=== PATIENT | female | born 1930 | race Caucasian/White ===

== ENCOUNTER → 2017-05-02 | Outpatient (CLI) | payer OTHER | LOC: CIMAGING 11:02 | PROVIDERS: ATTEND Neurological Surgery | DX: Z09 Encounter for follow-up examination after completed treatment for conditions other than malignant neoplasm (principal); Z98.1 Arthrodesis status; M43.12 Spondylolisthesis, cervical region | CPT/HCPCS: 72040-PO ==

== ENCOUNTER → 2017-06-03 | Outpatient (CLI) | payer OTHER | LOC: FIMAGING 09:37 | PROVIDERS: ATTEND Neurological Surgery | DX: M48.06 Spinal stenosis, lumbar region (principal) ==

== ENCOUNTER 2018-04-13 06:31 | Day surgery (SDC) | payer OTHER ==
[2018-04-13] MEDS ORDERED: FAMOTIDINE 20 MG TAB PO ONE (06:34)
[2018-04-13] MEDS ORDERED: ASPIRIN EC 325 MG TAB PO ONE (06:34)
[2018-04-13] MEDS ORDERED: diphenhydrAMINE 25 MG CAP PO ONE (06:34)
[2018-04-13] MEDS ORDERED: DIAZEPAM 5 MG TAB PO ONE (06:34)
[2018-04-13] MEDS ORDERED: NS 1,000 ML IV ONE (06:34)
--- NOTE | 2018-04-13 07:06 | CPEKG ---
Heart Rate: 53 RR Interval: 1132 P-R Interval: 192 QRSD Interval: 102 QT Interval: 436 QTC Interval: 410 P [place]: 37 QRS [place]: -39 T Wave [place]: -1 EKG Severity - BORDERLINE ECG - EKG Impression: SINUS RHYTHM EKG Impression: LEFT AXIS DEVIATION EKG Impression: BORDERLINE T ABNORMALITIES, INFERIOR LEADS EKG Impression: NO SIGNIFICANT CHANGE COMPARED WITH 07/23/2015 Electronically Signed By: Gilda Delgadillo 13-Apr-2018 08:36:06
[2018-04-13 07:10] LABS: PLATELET COUNT 205 10^3/uL (150-400)
[2018-04-13 07:17] LABS: INR 1.1 (0.83-1.16); PROTIME(PATIENT) 14.4 SEC (12.0-15.0)
--- NOTE | 2018-04-13 07:24 | PDHPUP ---
History & Physical Update H&P update statement: This history and physical update is based on an assessment of the patient which was completed after admission or registration (within 24 hours), but prior to the surgery/procedure. H&P update: H&P reviewed & patient examined, no change in patient's condition since H&P completed
--- NOTE | 2018-04-13 07:24 | PDPROPOC ---
Sedation Plan of Care Sedation Plan of Care: mental status noted, patient educated of risks, benefits , alternatives, patient can tolerate sedation ASA Classification: ASA 2 Planned drugs: fentanyl, midazolam Mallampati Score: Class 2 Mallampati Reference Image: Patient passed 3-3-2 rule?: Yes
[2018-04-13] MEDS ORDERED: LIDOCAINE 1% 300 MG/30 ML SDV ONE (07:41)
[2018-04-13] MEDS ORDERED: IOPAMIDOL (ISOVUE-370) 150 ML BTL IV ONE (07:42)
[2018-04-13] MEDS ORDERED: fentaNYL 100 MCG/2 ML INJ ONE (07:42)
[2018-04-13] MEDS ORDERED: HEPARIN 10,000 UNIT/10 ML MDV (1,000 UNIT/ML) ONE (07:42)
[2018-04-13] MEDS ORDERED: MIDAZOLAM 2 MG/2 ML VIAL ONE (07:42)
[2018-04-13] MEDS ORDERED: VERAPAMIL 5 MG/2 ML VIAL ONE (07:42)
[2018-04-13] MEDS ORDERED: NITROGLYCERIN 0.4 MG BTL SL PRN (08:32)
--- NOTE | 2018-04-13 08:38 | PDDXCAT ---
Diagnostic Cath Note - . Date: 04/13/18 Job Development Specialist: Gaurav Indication: Class I/II angina, intolerance to med therapy or failure to respond - Procedure Access: left wrist Procedure: left heart catheterization, coronary angiography, other (measure LVEDP) - Materials Left Heart Cath size: 4F Left Heart Cath materials: JL3.5, JR4.0, pigtail - Findings-Left Heart Catheterization LM: unobstructed. LAD: Stents widely patent with mild ISR not greater than 30%. 50% proximal LAD calcific atheroma. LCX: Stents widely patent. Diffuse atheroma without focal stenosis. L to right collaterals. RCA: Proximal 100% occlusion LVEF: 5 mmHg Complications: none Closure method: TR Band Assessment: 1, Widely patent sites of prior stenting with minimal ISR. 2. Occluded RCA with L to R collaterals. 3,Normal filling pressures. Plan: Medical therapy. Intervention: 4,000 units heparin 1 mg verseed 25ug fentanyl 25 cc contrast 226 mgy fluro Post procedure hydration with normal saline. Patient Problems: Problems Problem Status Onset Cervical stenosis of spinal canal Acute Arthrodesis status Acute
[2018-04-13] MEDS ORDERED: NS 1,000 ML IV SCH (08:45)
== END 2018-04-13 13:00 | disposition home or self-care (01) ==
LOC: FCATH 06:31
PROVIDERS: ATTEND Internal Medicine Interventional Cardiology
PROC: B2111ZZ Fluoroscopy of Multiple Coronary Arteries using Low Osmolar Contrast (ICD-10-PCS; principal; 2018-04-13)
PROC: B2151ZZ Fluoroscopy of Left Heart using Low Osmolar Contrast (ICD-10-PCS; principal; 2018-04-13)
PROC: 4A023N7 Measurement of Cardiac Sampling and Pressure, Left Heart, Percutaneous Approach (ICD-10-PCS; principal; 2018-04-13)
DX: I25.10 Atherosclerotic heart disease of native coronary artery without angina pectoris (principal); I65.22 Occlusion and stenosis of left carotid artery; I12.9 Hypertensive chronic kidney disease with stage 1 through stage 4 chronic kidney disease, or unspecified chronic kidney disease; E78.5 Hyperlipidemia, unspecified; E11.22 Type 2 diabetes mellitus with diabetic chronic kidney disease; N18.9 Chronic kidney disease, unspecified; Z95.5 Presence of coronary angioplasty implant and graft
CPT/HCPCS: C1769; J1644; J2250; J3010; Q9967

== ENCOUNTER 2019-03-08 16:53 | Inpatient (IN) | payer OTHER ==
[2019-03-08] MEDS ORDERED: ONDANSETRON 4 MG/2 ML VIAL ONE (17:53)
[2019-03-08] MEDS ORDERED: ONDANSETRON 4 MG/2 ML VIAL IVP ONE (17:53)
[2019-03-08] MEDS ORDERED: NS 1,000 ML IV ONE (17:53)
[2019-03-08 17:59] LABS: PLATELET COUNT 189 10^3/uL (150-400)
--- NOTE | 2019-03-08 18:07 | EDPHY ---
H & P Time Seen by Provider: 03/08/19 17:35 HPI/ROS: CHIEF COMPLAINT: I haven't been able to keep anything down all day HISTORY OF PRESENT ILLNESS: Patient presents vomiting all day today. Of note she has a history of multiple back surgeries with chronic left leg weakness. Over the past 9 days she has had more difficulty being able to keep her balance when walking. She says that only in the morning she has difficulty walking to the bathroom needs to hold onto things and then she will get better over the course of the day. Account of waxed and waned in her son got her a walker and then today she started having a new symptom which is nausea and vomiting. She took 4:00 a.m. Tramadol for her chronic back pain and that is a new medication and then started vomiting shortly after. No diarrhea and just some mild abdominal cramping. Symptoms moderate to severe and worse with any oral intake and consistent over the rest the day and not getting better. She did not get out of bed so she did not have any issues with her balance today. She denies spinning or the sense of motion, denies visual symptoms, denies confusion or new weakness or numbness in extremities or neck pain. REVIEW OF SYSTEMS: Eye: no change in vision ENT: no sore throat Cardiac: no chest pain or syncope Pulmonary: no cough or SOB Abdomen: HPI Musculoskeletal: Chronic back pain on tramadol Skin: no rash Neuro: no headache Constitutional: no fever : no urinary symptoms A comprehensive 10 point review of systems is otherwise negative aside from elements mentioned in the history of present illness. PAST MEDICAL HISTORY: Includes multiple spine surgeries, coronary disease with stenting, diabetes type 2, renal insufficiency Social history: Surgeon is Marek Hall, here with son and family General Appearance: Alert and conversant, cooperative. Eyes: No scleral icterus. ENT, Mouth: Dry mucous membranes. Respiratory: Normal respiratory effort, breath sounds equal, lungs are clear to auscultation. Cardiovascular: Regular rate and rhythm. No murmur. Gastrointestinal: Abdomen is soft and non tender. No rebound or guarding and bowel sounds are normal. Neurological: Alert, face symmetric, follows commands. Her extensor hallucis is 4-5 in the left foot which is baseline for her. Toes are downgoing bilaterally. Good elevator constructor hydraulic strength. Skin: Warm and dry, no rashes. Musculoskeletal: No peripheral edema. Psychiatric: Not agitated. Emergency Department course/MDM: Patient presents with about 9 days of difficulty with her balance, unclear if this is related to medications or age or her known left leg weakness from previous back problems or recent ischemic stroke event. Plan for head CT. She is also clinically dehydrated with vomiting all day today but abdominal exam not suggestive of acute surgical abdominal process. IV normal saline 1 L, Zofran 4 mg IV, CBC chemistry. 1819: Negative acute head CT per Dr. Randhawa. 1914: No further nausea vomiting. Admission for evaluation of severely unstable gait. Not safe to be at home. Smoking Status: Never smoked Constitutional: Initial Vital Signs Temperature (C) 37.1 C 03/08/19 17:06 Heart Rate 56 L 03/08/19 17:06 Respiratory Rate 18 03/08/19 17:06 Blood Pressure 210/83 H 03/08/19 17:06 O2 Sat (%) 91 L 03/08/19 17:06 O2 Delivery Mode Nasal Cannula O2 (L/minute) 2 Allergies/Adverse Reactions: No Known Allergies Allergy (Verified 03/08/19 17:02) Home Medications: Medication Instructions Recorded Aspirin [Aspirin 81mg (*)] 81 mg PO DAILY 07/21/15 Atorvastatin Calcium [Lipitor 40 40 mg PO HS 07/21/15 mg (*)] C/E/Zn/Cu/OM3/DHA/EPA/LUT/ZEAX 1 each PO BID 07/21/15 [Preservision Areds 2 Softgel] Clopidogrel Bisulfate [Clopidogrel] 75 mg PO DAILY 07/21/15 Furosemide [Lasix 40 MG (*)] 40 mg PO DAILY 07/21/15 amLODIPine BESYLATE [Norvasc 10 mg 2.5 mg PO DAILY 07/21/15 (*)] hydrALAZINE [Apresoline 50 mg (*)] 50 mg PO BID 07/21/15 Acetaminophen [Tylenol ES 500 mg 500 mg PO DAILY 09/02/15 (*)] Insulin Glargine,Hum.rec.anlog 18 unit SQ HS 09/02/15 [Lantus Solostar] Cholecalciferol Vit D3 [Vitamin D3 1,000 units PO DAILY 04/10/18 (*)] Gabapentin [Neurontin 100 MG (*)] 200 mg PO BID 04/10/18 Metoprolol Succinate [Toprol Xl] 100 mg PO BID 04/10/18 traMADol 03/08/19 Medical Decision Making - Diagnostics EKG Interpretation: 12-lead EKG interpreted by me; official reading is in computer system. My interpretation is sinus rhythm with left atrial enlargement rate 65 no ischemic changes normal intervals. Imaging Results: Imaging Impressions Head CT 03/08/19 17:54 Impression: 1. Moderate atrophy. 2. No hemorrhage, mass effect, or definite acute peripheral infarct. 3. Mild to moderate nonspecific hypodensities in the white matter of bilateral cerebral hemispheres. Differential diagnosis includes microvascular ischemic disease, post-infectious/post-inflammatory sequela, atypical demyelinating disease, or migraine-related sequela. Small white matter lacunar infarcts may also have this appearance. 4. Arteriosclerotic calcifications associated with the distal ICA in the parasellar location and distal left vertebral artery at the skull base. 5. Remote lacunar infarct right caudate nucleus. If symptoms worsen, additional imaging may be necessary. Findings discussed with Jamie Toure M.D. at 18:19 hour, 03/08/2019. Imaging: Discussed imaging studies w/ orthopedically impaired teacher Radiologist Differential Diagnosis: My differential for ataxia considered including but not limited to ischemic cerebellar stroke, cerebral hemorrhage, vertebral dissection, medication side effect Consult/Admit Bed Type: [place] [id number] - Data Points Laboratory Results: Laboratory Results 03/08/19 17:47 03/08/19 17:47 03/08/19 03/08/19 17:47 17:47 WBC 7.93 10^3/uL 10^3/uL (3.80-9.50) RBC 4.79 10^6/uL 10^6/uL (4.18-5.33) Hgb 14.2 g/dL g/dL (12.6-16.3) Hct 43.4 % % (38.0-47.0) MCV 90.6 fL fL (81.5-99.8) MCH 29.6 pg pg (27.9-34.1) MCHC 32.7 g/dL g/dL (32.4-36.7) RDW 13.7 % % (11.5-15.2) Plt Count 189 10^3/uL 10^3/uL (150-400) MPV 10.2 fL fL (8.7-11.7) Neut % (Auto) Not Reported Lymph % (Auto) Not Reported [place] % (Auto) Not Reported Eos % (Auto) Not Reported Baso % (Auto) Not Reported Nucleat RBC Rel Count Not Reported Absolute Neuts (auto) Not Reported Absolute Lymphs (auto) Not Reported Absolute Monos (auto) Not Reported Absolute Eos (auto) Not Reported Absolute Basos (auto) Not Reported Absolute Nucleated RBC Not Reported Immature Gran % Not Reported Seg Neutrophils % 66.0 % % Band Neutrophils % 1.0 % % Lymphocytes % 29.0 % % Monocytes % 4.0 % % Eosinophils % 0.0 % % Basophils % 0.0 % % Metamyelocytes % 0.0 % % Myelocytes % 0.0 % % Promyelocytes % 0.0 % % Blast Cells % 0.0 % % Immature Gran # Not Reported Absolute Seg Neuts 5.23 10^3/uL 10^3/uL (1.70-6.50) Absolute Band Neuts 0.08 10^3/uL 10^3/uL (0.00-0.70) Absolute Lymphocytes 2.30 10^3/uL 10^3/uL (1.00-3.00) Absolute Monocytes 0.32 10^3/uL 10^3/uL (0.30-0.80) Absolute Eosinophils 0.00 10^3/uL L 10^3/uL (0.03-0.40) Absolute Basophils 0.00 10^3/uL L 10^3/uL (0.02-0.10) Absolute Metamyelocyte 0.00 10^3/mL 10^3/mL (0.00-0.00) Absolute Myelocytes 0.00 10^3/mL 10^3/mL (0.00-0.00) Absolute Promyelocytes 0.00 10^3/uL 10^3/uL (0.00-0.00) Absolute Plasma Cells 0.00 10^3/uL 10^3/uL (0.00-0.00) RBC/WBC/PLT Morphology NORMAL (NORMAL) Absolute Blast Cells 0.00 10^3/uL 10^3/uL (0.00-0.00) Plasma Cells % 0.0 % % Smudge Cells 1+ H Platelet Estimate ADEQUATE (ADEQ) Sodium 139 mEq/L mEq/L (135-145) Potassium 4.1 mEq/L mEq/L (3.5-5.2) Chloride 101 mEq/L mEq/L (97-110) Carbon Dioxide 28 mEq/l mEq/l (22-31) Anion Gap 10 mEq/L mEq/L (6-14) BUN 74 mg/dL H mg/dL (7-23) Creatinine 2.1 mg/dL H mg/dL (0.6-1.0) Estimated GFR 22 Glucose 218 mg/dL H mg/dL (70-100) Calcium 10.0 mg/dL mg/dL (8.5-10.4) Medications Given: Discontinued Medications Sodium Chloride (Ns) 1,000 mls @ 0 mls/hr IV EDNOW ONE; Wide Open PRN Reason: Protocol Stop: 03/08/19 17:54 Last Admin: 03/08/19 17:56 Dose: 1,000 mls Ondansetron HCl (Zofran) 4 mg IVP EDNOW ONE Stop: 03/08/19 17:54 Last Admin: 03/08/19 17:56 Dose: 4 mg Departure - Departure Disposition: [facility] Inpatient Acute Clinical Impression: Ataxia Nausea & vomiting Qualifiers: Vomiting type: unspecified Vomiting Intractability: non-intractable Qualified Code(s): R11.2 - Nausea with vomiting, unspecified Condition: Good Referrals: Natalio Espitia MD [Primary Care Provider] - As per Instructions
--- NOTE | 2019-03-08 18:20 | CPEKG ---
Test Reason : OPEN Blood Pressure : / mmHG Vent. Rate : 065 BPM Atrial Rate : 065 BPM P-R Int : 181 ms QRS Dur : 105 ms QT Int : 418 ms P-R-T Axes : 050 -37 -02 degrees QTc Int : 435 ms Sinus rhythm Probable left atrial enlargement Left axis deviation Confirmed by Brian Tanner ([id number]) on 03/08/2019 6:19:36 PM Referred By: BRIAN TANNER Confirmed By:Brian Tanner
[2019-03-08] MEDS ORDERED: hydrALAZINE 20 MG/ML VIAL IVP PRN ×2 (20:05→20:09)
[2019-03-08] MEDS ORDERED: D50W 25 GM/50 ML SYR IVP PRN (20:10)
--- NOTE | 2019-03-08 20:10 | PDGENHP ---
History and Physical - Chief Complaint Ataxia/weakness - History of Present Illness 88 y/o female w/ hx of multiple cervical sx's w/chronic LLE weakness and right foot drop, DM2, CKD, and CAD s/p stents presenting w/ 9 days worth of ataxia and weakness. Today she reportedly felt nauseous and vomiting. When she wakes up in the morning, she attempts to get out of bed quickly to make it to the bathroom in time, becomes lightheaded and dizzy, and feels like her balance is off to the point where she needs to hold on to ngo or objects to keep her balance. She reports her balance improves as the day progresses. Yesterday, she took new medication Tramadol for her chronic back pain and felt fine however she took a tablet today and became ill w/nausea and vomiting. Initial imaging has been unremarkable. Endorses urinary incontinence, not new. Denies CP, palpitations, SOB, constipation or diarrhea. History Information - Allergies/Home Medication List Allergies/Adverse Reactions: No Known Allergies Allergy (Verified 03/08/19 17:02) Home Medications: Aspirin [Aspirin 81mg (*)] 81 mg PO DAILY 07/21/15 [Last Taken 04/13/18] Atorvastatin Calcium [Lipitor 40 mg (*)] 40 mg PO HS 07/21/15 [Last Taken ] C/E/Zn/Cu/OM3/DHA/EPA/LUT/ZEAX [Preservision Areds 2 Softgel] 1 each PO BID [Last Taken 04/12/18] Clopidogrel Bisulfate [Clopidogrel] 75 mg PO DAILY 07/21/15 [Last Taken 04/13/18 ] Furosemide [Lasix 40 MG (*)] 40 mg PO DAILY 07/21/15 [Last Taken 04/12/18] hydrALAZINE [Apresoline 50 mg (*)] 50 mg PO BID 07/21/15 [Last Taken 04/13/18] Cholecalciferol Vit D3 [Vitamin D3 (*)] 2,000 units PO DAILY 04/10/18 [Last Taken 04/12/18] Gabapentin [Neurontin 100 MG (*)] 200 mg PO BID 04/10/18 [Last Taken 04/13/18] Metoprolol Succinate [Toprol Xl] 100 mg PO BID 04/10/18 [Last Taken 04/13/18] Acetaminophen [Tylenol 325mg (*)] 325 mg PO DAILY PRN 03/08/19 [Last Taken Unknown] Herbals/Supplements -Info Only 1 ea PO DAILY 03/08/19 [Last Taken Unknown] Insulin Glargine [Lantus] 18 unit SC HS 03/08/19 [Last Taken Unknown] Isosorbide Mononitrate [Isosorbide Mononitrate ER] 60 mg PO DAILY 03/08/19 [ Last Taken Unknown] amLODIPine BESYLATE [Norvasc 5 mg (*)] 5 mg PO DAILY 03/08/19 [Last Taken Unknown] traMADol [Ultram 50 mg (*)] 50 mg PO BID PRN 03/08/19 [Last Taken Unknown] I have personally reviewed and updated: family history, medical history, social history, surgical history - Past Medical History coronary artery disease, diabetes type 2, hypertension, hyperlipidemia Additional medical history: CKD - Surgical History Reports: coronary stent (1997 and 2012) - Family History Positive for: hypertension Additional family history: Congestive heart failure. Rheumatic heart disease - Social History Smoking Status: Never smoked Alcohol Use: None Drug Use: None Additional social history: Lives independently. Son and [id number] at bedside. Son got her a walker to use yesterday. Up until then, she had a cane which she admits to not ever using. Review of Systems Review of Systems: ROS: 10pt was reviewed & negative except for what was stated in HPI & below Physical Exam Physical Exam: Lab data and imaging were reviewed. White blood cell count: 7.93 Hemoglobin hematocrit: 14.2 and 43.4 Platelet count: 189 Sodium: 139 Potassium: 4.1 Chloride: 101 Carbon dioxide: 28 BUN/Cr: 7.4/2.[address] WO IV contrast: No hemorrhage, mass effect, or definite acute peripheral infarct; moderate atrophy; [id number] nonspecific hypodensities in the white matter of bilateral cerebral hemispheres; arterial sclerotic calcifications associated with the distal ICA in the parasellar location and distal left vertebral artery at the skull base; remote lacunar right caudate nucleus EKG: SR w/left axis deviation, suspected left atrial enlargement Temp Pulse Resp BP Pulse Ox 37.1 C 72 20 199/80 H 98 03/08/19 17:06 03/08/19 19:46 03/08/19 19:46 03/08/19 19:46 03/08/19 19:46 O2 (L/minute) 2 Constitutional: no apparent distress, appears nourished, not in pain Eyes: PERRL, anicteric sclera, EOMI Ears, Nose, Mouth, Throat: hearing normal, ears appear normal, no oral mucosal ulcers, dry mucous membranes Cardiovascular: regular rate and rhythym, no murmur, rub, or gallop, No edema Peripheral Pulses: 2+: dorsalis-pedis (R), dorsalis-pedis (L) Respiratory: no respiratory distress, no rales or rhonchi, clear to auscultation Gastrointestinal: normoactive bowel sounds, soft, non-tender abdomen, no palpable masses Genitourinary: no bladder fullness, no bladder tenderness Skin: warm, normal color, no rashes or abrasions, no fluctuance, no induration, No mottled Musculoskeletal: generalized weakness Neurologic: AAOx3, sensation intact bilaterally, CN II-XII Intact (Performed uardqh-fm-haed and tpoj-hr-eddv appropriately w/no issues; LLE chronically weak , unable to hold in air for 5 seconds w/o dropping) Psychiatric: interacting appropriately, not anxious, not encephalopathic, thought process linear Lymph, Heme, Immunologic: no cervical LAD, no supraclavicular LAD Lab Data & Imaging Review 03/08/19 17:47 03/08/19 17:47 WBC 7.93 10^3/uL (3.80-9.50) 03/08/19 17:47 RBC 4.79 10^6/uL (4.18-5.33) 03/08/19 17:47 Hgb 14.2 g/dL (12.6-16.3) 03/08/19 17:47 Hct 43.4 % (38.0-47.0) 03/08/19 17:47 MCV 90.6 fL (81.5-99.8) 03/08/19 17:47 MCH 29.6 pg (27.9-34.1) 03/08/19 17:47 MCHC 32.7 g/dL (32.4-36.7) 03/08/19 17:47 RDW 13.7 % (11.5-15.2) 03/08/19 17:47 Plt Count 189 10^3/uL (150-400) 03/08/19 17:47 MPV 10.2 fL (8.7-11.7) 03/08/19 17:47 Neut % (Auto) Not Reported 03/08/19 17:47 Lymph % (Auto) Not Reported 03/08/19 17:47 [place] % (Auto) Not Reported 03/08/19 17:47 Eos % (Auto) Not Reported 03/08/19 17:47 Baso % (Auto) Not Reported 03/08/19 17:47 Nucleat RBC Rel Count Not Reported 03/08/19 17:47 Absolute Neuts (auto) Not Reported 03/08/19 17:47 Absolute Lymphs (auto) Not Reported 03/08/19 17:47 Absolute Monos (auto) Not Reported 03/08/19 17:47 Absolute Eos (auto) Not Reported 03/08/19 17:47 Absolute Basos (auto) Not Reported 03/08/19 17:47 Absolute Nucleated RBC Not Reported 03/08/19 17:47 Immature Gran % Not Reported 03/08/19 17:47 Seg Neutrophils % 66.0 % 03/08/19 17:47 Band Neutrophils % 1.0 % 03/08/19 17:47 Lymphocytes % 29.0 % 03/08/19 17:47 Monocytes % 4.0 % 03/08/19 17:47 Eosinophils % 0.0 % 03/08/19 17:47 Basophils % 0.0 % 03/08/19 17:47 Metamyelocytes % 0.0 % 03/08/19 17:47 Myelocytes % 0.0 % 03/08/19 17:47 Promyelocytes % 0.0 % 03/08/19 17:47 Blast Cells % 0.0 % 03/08/19 17:47 Immature Gran # Not Reported 03/08/19 17:47 Absolute Seg Neuts 5.23 10^3/uL (1.70-6.50) 03/08/19 17:47 Absolute Band Neuts 0.08 10^3/uL (0.00-0.70) 03/08/19 17:47 Absolute Lymphocytes 2.30 10^3/uL (1.00-3.00) 03/08/19 17:47 Absolute Monocytes 0.32 10^3/uL (0.30-0.80) 03/08/19 17:47 Absolute Eosinophils 0.00 10^3/uL (0.03-0.40) L 03/08/19 17:47 Absolute Basophils 0.00 10^3/uL (0.02-0.10) L 03/08/19 17:47 Absolute Metamyelocyte 0.00 10^3/mL (0.00-0.00) 03/08/19 17:47 Absolute Myelocytes 0.00 10^3/mL (0.00-0.00) 03/08/19 17:47 Absolute Promyelocytes 0.00 10^3/uL (0.00-0.00) 03/08/19 17:47 Absolute Plasma Cells 0.00 10^3/uL (0.00-0.00) 03/08/19 17:47 RBC/WBC/PLT Morphology NORMAL (NORMAL) 03/08/19 17:47 Absolute Blast Cells 0.00 10^3/uL (0.00-0.00) 03/08/19 17:47 Plasma Cells % 0.0 % 03/08/19 17:47 Smudge Cells 1+ H 03/08/19 17:47 Platelet Estimate ADEQUATE (ADEQ) 03/08/19 17:47 Sodium 139 mEq/L (135-145) 03/08/19 17:47 Potassium 4.1 mEq/L (3.5-5.2) 03/08/19 17:47 Chloride 101 mEq/L (97-110) 03/08/19 17:47 Carbon Dioxide 28 mEq/l (22-31) 03/08/19 17:47 Anion Gap 10 mEq/L (6-14) 03/08/19 17:47 BUN 74 mg/dL (7-23) H 03/08/19 17:47 Creatinine 2.1 mg/dL (0.6-1.0) H 03/08/19 17:47 Estimated GFR 22 03/08/19 17:47 Glucose 218 mg/dL (70-100) H 03/08/19 17:47 Calcium 10.0 mg/dL (8.5-10.4) 03/08/19 17:47 Assessment & Plan Assessment: 88 y/o female presenting w/vague symptoms of dizziness, lightheadedness, gait disturbances for the last 9 days; worse in the morning but then progressively improves as the day goes on. Today she had bouts of nausea and vomiting. Her vital signs presenting to the emergency room are: Blood pressure 210/83, heart rate 56, respirations 18, 91% on room air, temperature 37.1 degrees. Her current set of vitals are: Blood pressure 163/45, heart rate 69, respirations 18, 94% on 2 L nasal cannula. #Ataxia w/unknown etiology, generalized weakness -Brain MRI WO contrast pending/Bilateral carotid doppler pending -Neurology consulted -Orthostatic vitals one time -PT/OT to evaluate and treat -Checking trop -Cont tele/PCU monitoring -TSH pending #HTN urgency -Hx of HTN however presented to the ED w/systolic in 200s. Cont to monitor, hydralazine PRN if systolic > 190. Cont home BP medications once verified by pharmacy. Unknown whether elevated BP is a significant component to her symptoms. #DM2 -Reportedly takes Lantus -Checking A1c, last A1c in August 2018 and approximately 7.0% -ISS while in house, glucose checks TID before meals #Nausea/Vomiting -Symptoms started shortly after taking new medication tramadol. Will hold this medication for now. -Anti-emetics PRN; received 1L NS in ED and will continue IVF x 1 bag overnight #Hx of CAD s/p stent -Cathed in April 2018 w/results of widely patent sites of prior stenting with minimal ISR, occluded RCA with [id number] collaterals and normal filling pressures. -continue home medications #Chronic back pain -PT/OT to evaluate and treat -Pain management PO PRN #CKD: Baseline, stable Diet: Cardiac once passes RN swallow test Code: DNR VTE PPX: LMWH Dispo: Admit to inpatient
--- NOTE | 2019-03-08 20:23 | HOSPPROG ---
Hospitalist Progress Note Assessment/Plan: CC: vomiting, weakness, ataxia 88 yo female with CC per above. In the ER found to have HTN urgency with BP in the 210's systolic. Was not given BP meds. No e/o of stroke on CT Brain. Reports no new focal weakness but does have a hx of multiple back surgeries with chronic left leg weakness as well as right sided foot drop. Over the past 9 days she has had more difficulty being able to keep her balance when walking. PAST MEDICAL HISTORY: Includes multiple spine surgeries, coronary disease with stenting, diabetes type 2, renal insufficiency Soc: Non smoker #HTN Urgency #Ataxia #Nausea and Vomiting #Chronic Renal insufficiency and elevated BUN: at baseline #NIDDM and hyperglycemia, unclear what she takes at home #Generalized Weakness #Hx of CAD Plan: -permissive HTN, but will provide for Hydralazine PRN SBP above 190. Unclear if the HTN is causing some of her weakness/ataxia or if this is the result of a primary neuro event -no e/o stroke on CT but will get carotid US and MRI brain -consider neuro consult in a.m. -ISS, check A1C -anti-emetics, IVF -appropriate home meds total critical care time in this pt with HTN urgency is 35 mins. Please see EDUCATION CONSULTANT H &P. Subjective: weakness and difficulty with coordination in the past week. no obvious focal deficits Objective: Vital Signs Temp Pulse Resp BP Pulse Ox 37.1 C 72 20 199/80 H 98 03/08/19 17:06 03/08/19 19:46 03/08/19 19:46 03/08/19 19:46 03/08/19 19:46 - Physical Exam Constitutional: no apparent distress Eyes: PERRL, EOMI Ears, Nose, Mouth, Throat: moist mucous membranes, hearing normal Cardiovascular: regular rate and rhythym, No edema Respiratory: no respiratory distress, no rales or rhonchi, clear to auscultation Gastrointestinal: normoactive bowel sounds Skin: warm Neurologic: AAOx3, CN II-XII Intact, No facial droop Psychiatric: interacting appropriately, not anxious, not encephalopathic Lymph, Heme, Immunologic: No petechiae ICD10 Worksheet Patient Problems: Problems Problem Status Onset Ataxia Acute Nausea & vomiting Acute Arthrodesis status Acute Cervical stenosis of spinal canal Acute
[2019-03-08] MEDS ORDERED: ONDANSETRON 4 MG/2 ML VIAL IVP PRN (20:51)
[2019-03-08] MEDS ORDERED: ONDANSETRON DISINTEGRATING 4 MG TAB PO PRN (20:51)
[2019-03-08] MEDS ORDERED: NS 1,000 ML IV SCH (21:15)
[2019-03-08] MEDS: HEPARIN 5,000 UNIT/0.5 ML INJ SC SCH (22:46)
[2019-03-08] MEDS: METOPROLOL SUCCINATE XR 100 MG TAB PO SCH (23:50)
[2019-03-09] MEDS: ATORVASTATIN CALCIUM 40 MG TAB PO SCH ×2 (00:35→21:35)
[2019-03-09] MEDS: HEPARIN 5,000 UNIT/0.5 ML INJ SC SCH ×3 (05:14→21:40)
[2019-03-09] MEDS: INSULIN LISPRO 100 UNIT/ML SC SCH ×3 (08:20→18:54)
[2019-03-09] MEDS: GABAPENTIN 100 MG CAP PO SCH ×2 (08:35→21:35)
[2019-03-09] MEDS: amLODIPine BESYLATE 5 MG TAB PO SCH (08:36)
[2019-03-09] MEDS: METOPROLOL SUCCINATE XR 100 MG TAB PO SCH ×2 (08:36→21:35)
[2019-03-09] MEDS: CLOPIDOGREL BISULFATE 75 MG TAB PO SCH (08:36)
[2019-03-09] MEDS: FUROSEMIDE 40 MG TAB PO SCH (08:36)
[2019-03-09] MEDS: PRESERVISION AREDS2 FORMULA EYE VIT 1 EACH PO SCH ×2 (08:36→21:35)
[2019-03-09] MEDS: CHOLECALCIFEROL VIT D3 2,000 UNITS TAB/CAP PO SCH (08:36)
[2019-03-09] MEDS: ASPIRIN 81 MG CHEWABLE TAB PO SCH (08:36)
[2019-03-09] MEDS: ISOSORBIDE MONONITRATE 30 MG TAB.SR PO SCH (08:39)
--- NOTE | 2019-03-09 09:21 | ASMTLACE ---
[facility]INSON Acuity / Level of Answers: Yes Care: Did the patient have an inpatient admission? Comorbidities - select Answers: Coronary Artery Disease all that apply Diabetes (uncontrolled or controlled) Moderate or severe liver or renal disease Opioid dependence / Chronic pain # of Emergency department Answers: 1-2 visits in the last 6 months Score: 15 Date Signed: 03/09/2019 09:21 AM Electronically Signed By:Cecily Motley
[2019-03-09] MEDS ORDERED: IOPAMIDOL (ISOVUE 370) 100 ML BTL IV ONE (09:30)
--- NOTE | 2019-03-09 09:49 | GCON ---
[f rep st] CONSULTATION NEUROLOGIC CONSULTATION HISTORY: The patient is an 88-year-old woman whom I am asked to see in neurologic consultation erica win a chief complaint of getting dizzy and feeling unsteady over the last week. She says that she r eally started to notice this problem in the last 2 weeks where she will get up and feel lightheaded a nd unsteady, and may lean to 1 side or the other. She is not really describing acute vertigo. It is more likely to occur in the morning when she gets up quickly. She is not describing focal numbness or weakness. She does have some chronic pain in the right lower back and 2 years ago apparently was evaluated by Neurosurgery and not thought to be a good surgical candidate at the time. She is not alvarado ving any headache. She denies chest pain, palpitation, shortness of breath. PAST MEDICAL HISTORY: She has multiple medical problems that include chronic weakness in the legs, m ore on the left than the right, a right footdrop, as well as type 2 diabetes, kidney disease, coronar y disease with stenting. FAMILY HISTORY: Hypertension, heart failure, and rheumatic heart disease. SOCIAL HISTORY: No history of smoking. She lives independently currently. No alcohol. PHYSICAL EXAM: VITAL SIGNS: The blood pressure is 190/58, pulse of 73, respirations 18, temperature 37.4. She had her blood pressure checked in the supine position and was 180/75, and upon standing w as 158/79, and there was no significant change in pulse. Seated, the blood pressure was 175/98, with a pulse of 87. GENERAL: She is overweight, in no acute distress. She is lying in the bed. She alvarado s loud bilateral carotid bruits. No cardiac murmur of significance. Pupils are 2 mm and reactive. Extraocular movements are intact. Normal facial sensation and strength. Palate elevates symmetrical ly. Tongue protrudes midline. Hearing is preserved. Motor exam reveals generalized weakness, but a lso increased weakness in the distal right lower extremity with footdrop and weakness in the left leg as well. Distal decreased sensation in the lower extremities. Hypoactive reflexes. Head CT and brain MRI do not show any evidence of acute hemorrhage or stroke. Carotid ultrasound: She has flow velocities that correlate with bilateral moderate to severe stenose s estimated to be 70-89 percent on the right and 90% at the left internal carotid artery. IMPRESSION: Total unit time of 50 minutes. This patient has over a week of symptoms of lightheadedn ess with some orthostatic component as well as unsteadiness when she stands. She has at least modera te and probably severe bilateral carotid stenoses. This could very well be the source of symptoms. We need to further analyze the posterior circulation and clarify the degree of the stenoses with CT a ngiogram. It is unclear whether it would be appropriate to intervene with her multiple other risk fa ctors and age, but it is something to consider, and she said she was not sure if she would ultimately consider any kind of intervention or that to be recommended. Once we have that data, we can have a more detailed discussion about the pros and cons of any intervention. She is currently independent a nd that is her goal to maintain that, but I think it would also be reasonable to treat this with a co nservative approach, depending on her wishes. /[id number]/MODL
--- NOTE | 2019-03-09 12:18 | HOSPPROG ---
Hospitalist Progress Note Assessment/Plan: The patient is a 88-year-old female with PMH psittacosis, HTN, CKD, DM, CAD, FAITH who was admitted for dizziness and ataxia. ASSESSMENT/PLAN: Ataxia Dizziness Gen weakness Accelerated HTN Severe carotid artery stenosis, bilateral Remote lacunar infarct Orthostatic hypotension Abnl EKG -Ventricular bigeminy w/ PVCs -LVH, LAE CAD, s/p remote stents DM2 CKD st 3 Chronic low back pain N/V, resolved - likely 2/2 med AE tramadol -Neuro recs appreciated. -CV surg consulted - Dr. Salguero's group. For recs on severe FAITH. Discussed w/ Richelle Roblero NP. Pt has already been on DAP, statin. -Monitor on tele. -Continue home meds. VTE prophylaxis: Heparin Code Status: DNR Status: inp for > 2 midnight stay. Disposition: Med tele ____ SUBJECTIVE: Today the patient feels slightly better, but still feels off balance. She reports having seen Dr. Moses in 2016 for FAITH, but intervention was not indicated at that time. OBJECTIVE: Physical Exam: General: The patient is an elderly female who is alert and in no acute distress. HEENT: normocephalic, extraocular movements intact, conjunctivae clear. Mucous membranes moist. Neck: trachea midline, no visible masses. +bilateral carotid bruits. CV: +S1/S2, RRR, plus grade 2 systolic murmur. Resp: unlabored, CTAB no RRW. Abd: soft and nondistended. Musculoskeletal: Normal muscle tone/bulk. Neuro: cranial nerves II - XII grossly intact. Intact gross motor and sensory function. Psych: Appropriate mood and appropriate affect. Skin: No pallor. No petechiae. Labs/Imaging/Other Tests: Personally reviewed/interpreted. Objective: Vital Signs Temp Pulse Resp BP Pulse Ox 36.8 C 63 16 177/94 H 94 03/09/19 11:12 03/09/19 11:12 03/09/19 11:12 03/09/19 11:12 03/09/19 11:12 Laboratory Results 03/09/19 03:14 03/08/19 03/09/19 03/10/19 05:59 05:59 05:59 Intake Total 1450 Output Total 100 Balance 1350 - Time Spent With Patient Time Spent with Patient: greater than 35 minutes Time Spent with Patient: Greater than 35 minutes spent on this patients care, greater than 50% of time spent counseling, educating, and coordinating care regarding the above mentioned plan. ICD10 Worksheet Patient Problems: Problems Problem Status Onset Ataxia Acute Nausea & vomiting Acute Arthrodesis status Acute Cervical stenosis of spinal canal Acute
--- NOTE | 2019-03-09 12:29 | PDMN ---
Medical Necessity Medical necessity: MCG: GRG Neurology New-onset severe neurologic finding requiring inpatient care indicated by 1 or more of the following. -Weakness (eg , grade 3 or less)[B](38). -Ataxia. ataxic gait R26.0 - 2 days. 88yoF with dizziness unsteady on her feet X 2 weeks, gen. weakness, elevated BP, neck CT shows severe bilateral stenosis internal carotid arteries, ( 80-90% on R and 70-80% L) , .. anticipate > 2 MN ongoing med nec care- further monitoring, eval and tx.
[2019-03-09] MEDS ORDERED: AMOXICILLIN/CLAVULANATE POT 875/125 MG TAB PO SCH (15:00)
[2019-03-09] MEDS ORDERED: DOXYCYCLINE HYCLATE 100 MG CAP/TAB PO SCH (15:00)
--- NOTE | 2019-03-09 15:51 | ASMTCMCOM ---
CM Note CM Note Notes: CM met with pt in her room. Pt is sleepy but able to converse and answer appropriately. She was admitted yesterday with increasing difficulty with her balance, dizziness, and nausea. Pt lives alone in her house in [place]. Her son Stanley lives in [place] as well. Her son drives her wherever she needs to go, including dr rahman and the grocery store. She gets her meds through mail order. Her PCP is Natalio Espitia. Pt reports that at home her dizziness and balance issues are worse in the morning upon first arising. She does have orthostatic hypotension, as well as chronic low back pain and left leg weakness. She uses a walker She uses 2L oxygen at night at home. PT and OT have been ordered and they recommend HC. CM discussed this with pt and left a list of HC agencies for her to choose from. Also LM for her son advising so that he can help choose an agency if needed. Pt mentioned that after a previous hospitalization she went to [facility] and didn't like it. CM to continue to follow. CM D/C plan: Likely to home with HC. Date Signed: 03/09/2019 03:50 PM Electronically Signed By:Tracy Johnson
--- NOTE | 2019-03-09 16:10 | GCON ---
[f rep st] CONSULTATION CHIEF COMPLAINT: Ataxia, weakness and dizziness. HISTORY OF PRESENT ILLNESS: The patient is an 88-year-old female with a medical history of diabetes type 2, chronic kidney disease and coronary artery disease, status post stent placement. She presented to the emergency department yesterday complaining of increased lightheadedness and dizziness. When she gets up in the morning, she feels that her balance is off and she has to hold onto a wall to keep her balance. She also has a history of chronic back pain, left lower extremity weakness and right footdrop. Additionally, she complains of nausea and vomiting. We were asked to see this patient regarding the bilateral severe carotid stenosis that was found on a neck CT angiogram. PAST MEDICAL HISTORY: Coronary artery disease, diabetes type 2, hypertension, hyperlipidemia, chronic kidney disease. SURGICAL HISTORY: Coronary stents. FAMILY HISTORY: Hypertension, congestive heart failure, rheumatic heart disease. SOCIAL HISTORY: The patient is a nonsmoker. Does not drink alcohol or use recreational drugs. ALLERGIES: No known drug allergies. MEDICATIONS: Aspirin 81 mg, atorvastatin 40 mg, Plavix 75 mg, furosemide 40 mg , hydralazine 50 mg, cholecalciferol vitamin D3 2000 units, gabapentin 200 mg twice daily, metoprolol succinate 200 mg twice daily, acetaminophen as needed, herbal supplements, insulin glargine 18 units q.h.s., amlodipine 5 mg daily, tramadol 50 mg as needed. REVIEW OF SYSTEMS: A 10-point review of systems was performed and was negative beside what is in the HPI. PHYSICAL EXAM: GENERAL: A well-appearing, elderly female, resting in the hospital bed in no acute distress. HEENT: Normocephalic, atraumatic. No gross hearing deficit. Mucous membranes are moist. PERRLA. NECK: Trachea is midline. Loud carotid bruits bilaterally. CARDIAC: Regular rate and rhythm. No clicks, murmurs, or rubs. CHEST: Clear to auscultation bilaterally. No wheezes, rales, or rhonchi. ABDOMEN: Soft, nontender and nondistended. LOWER EXTREMITIES: Generalized weakness throughout both lower extremities with distal right lower extremity footdrop. PSYCHIATRIC: Appropriate mood and affect. NEUROLOGIC: Alert and oriented x3. Cranial nerves 2-12 are grossly intact. IMPRESSION/PLAN: This is an 88-year-old female previously known to Dr. Moses, who last was seen in our office approximately 3 years ago for carotid stenosis. She now presents with worsening dizziness and ataxia. A CT angiogram revealed severe bilateral stenosis, internal carotid arteries, 80% to 90% on the right and 70% to 80% on the left, due to extensive calcified and noncalcified plaque. The dominant left vertebral artery is a primary feeding vessel to the posterior circulation. The right vertebral artery does not significantly contribute to the posterior circulation. I discussed this case with Dr. Duenas, who feels that her symptoms are likely due to her severe bilateral carotid artery stenosis. I have discussed all risks and options with the patient and her family. I have discussed carotid endarterectomy surgery in detail. Risks of the surgery include, but are not limited to infection, bleeding, stroke, nerve injury, heart attack and . There is a greater risk of stroke should she choose not to have surgery. That being said, the patient has multiple comorbidities and she is 88 years old. She would need cardiac clearance prior to surgery. The patient wishes to discuss the surgery with her family and will follow up with Dr. Moses next week. She should continue her Plavix and aspirin in the meantime. This case was discussed with Dr. Salguero, who agrees with the plan. She will see the patient later this afternoon. /[id number]/MODL MTDD
[2019-03-09] MEDS: ACETAMINOPHEN 325 MG TAB PO PRN (18:54)
[2019-03-09] MEDS: INSULIN GLARGINE 100 UNITS/ML UNIT SC SCH (21:40)
[2019-03-09] MEDS ORDERED: hydrALAZINE 20 MG/ML VIAL IVP PRN (23:46)
[2019-03-10 04:53] LABS: PLATELET COUNT 166 10^3/uL (150-400)
[2019-03-10] MEDS: HEPARIN 5,000 UNIT/0.5 ML INJ SC SCH ×3 (05:02→21:06)
[2019-03-10] MEDS: ACETAMINOPHEN 325 MG TAB PO PRN (05:18)
[2019-03-10] MEDS: INSULIN LISPRO 100 UNIT/ML SC SCH ×3 (07:30→17:39)
[2019-03-10] MEDS: ASPIRIN 81 MG CHEWABLE TAB PO SCH (08:30)
[2019-03-10] MEDS: CHOLECALCIFEROL VIT D3 2,000 UNITS TAB/CAP PO SCH (08:30)
[2019-03-10] MEDS: GABAPENTIN 100 MG CAP PO SCH ×2 (08:30→19:56)
[2019-03-10] MEDS: PRESERVISION AREDS2 FORMULA EYE VIT 1 EACH PO SCH ×2 (08:30→19:56)
[2019-03-10] MEDS: FUROSEMIDE 40 MG TAB PO SCH (08:30)
[2019-03-10] MEDS: METOPROLOL SUCCINATE XR 100 MG TAB PO SCH ×2 (08:30→19:54)
[2019-03-10] MEDS: amLODIPine BESYLATE 5 MG TAB PO SCH (08:30)
[2019-03-10] MEDS: ISOSORBIDE MONONITRATE 30 MG TAB.SR PO SCH (08:30)
[2019-03-10] MEDS: CLOPIDOGREL BISULFATE 75 MG TAB PO SCH (08:31)
--- NOTE | 2019-03-10 09:09 | SOAPPROG ---
KELLY Progress Note Assessment/Plan: Assessment/plan: 88 y/o F admitted with dizziness and ataxia. Found to have severe bilateral carotid stenosis Plan: pt has appointment to follow up with Dr. Moses on Tuesday to discuss CEA surgery. Pt seen and examined with Dr. Salguero. S: Sitting up in chair. No new complaints. O: Alert Afebrile Loud carotid bruits bilaterally RRR No increased WOB Abdomen soft 03/10/19 09:06 Objective: Vital Signs Temp Pulse Resp BP Pulse Ox 36.9 C 60 12 175/69 H 96 03/10/19 06:53 03/10/19 06:53 03/10/19 06:53 03/10/19 06:53 03/10/19 06:53 Laboratory Results 03/10/19 04:12 03/10/19 04:12 03/09/19 03/10/19 03/11/19 05:59 05:59 05:59 Intake Total 1450 1100 Output Total 100 1000 Balance 1350 100 ICD10 Worksheet Patient Problems: Problems Problem Status Onset Ataxia Acute Carotid stenosis, bilateral Acute Nausea & vomiting Acute Arthrodesis status Acute Cervical stenosis of spinal canal Acute
[2019-03-10] MEDS ORDERED: ISOSORBIDE MONONITRATE 30 MG TAB.SR PO ONE (10:45)
[2019-03-10] MEDS: LIDOCAINE 4%/MENTHOL 1% PATCH TD SCH (12:30)
--- NOTE | 2019-03-10 14:43 | HOSPPROG ---
Hospitalist Progress Note Assessment/Plan: The patient is a 88-year-old female with PMH psittacosis, HTN, CKD, DM, CAD, FAITH who was admitted for dizziness and ataxia. ASSESSMENT/PLAN: Gen weakness- 2/2 Low back pain/DJD/L sciatica Hypoxemia, chronic - on O2 Ataxia, resolved Dizziness, resolved Accelerated HTN, resolved Severe carotid artery stenosis, bilateral Remote lacunar infarct Orthostatic hypotension Abnl EKG -Ventricular bigeminy w/ PVCs -LVH, LAE CAD, s/p remote stents DM2 CKD st 3 Chronic low back pain N/V, resolved - likely 2/2 med AE tramadol on empty stomach -Neuro recs appreciated. -Pt to FU w/ Dr. Moses for FAITH in office on . -Continue heat, acetaminophen, lidocaine patch for pain. Her PCP had given her tramadol, which may have caused her to vomit when she took it on an empty stomach. Try taking it again w/ food, if she tolerates she can resume it . -Monitor on tele. -Continue home meds. -ISU. PT/OT. VTE prophylaxis: Heparin Code Status: DNR Status: inp for > 2 midnight stay. Disposition: Med tele --tomorrow may go home with home care ____ SUBJECTIVE: Today the patient feels slightly worse, as her low back pain and L leg pain are acting up today. She admits her O2 sat is often in the 80s at home , but she feels asymptomatic. She has home O2 at night but does not use it during the day bc she does not feel it is needed. OBJECTIVE: Physical Exam: General: The patient is an elderly female who is alert and in no acute distress. HEENT: normocephalic, extraocular movements intact, conjunctivae clear. Mucous membranes moist. Neck: trachea midline, no visible masses. +bilateral carotid bruits. CV: +S1/S2, RRR, plus grade 2 systolic murmur. Resp: unlabored, CTAB no RRW. Abd: soft and nondistended. Musculoskeletal: Normal muscle tone/bulk. +L leg tenderness. Neuro: cranial nerves II - XII grossly intact. Intact gross motor and sensory function. Psych: Appropriate mood and appropriate affect. Skin: No pallor. No petechiae. Labs/Imaging/Other Tests: Personally reviewed/interpreted. Objective: Vital Signs Temp Pulse Resp BP Pulse Ox 36.6 C 57 L 15 141/50 H 100 03/10/19 11:28 03/10/19 11:28 03/10/19 11:28 03/10/19 11:28 03/10/19 11:28 Laboratory Results 03/10/19 04:12 03/10/19 04:12 03/09/19 03/10/19 03/11/19 05:59 05:59 05:59 Intake Total 1450 1100 Output Total 100 1000 500 Balance 1350 100 -500 - Time Spent With Patient Time Spent with Patient: greater than 35 minutes Time Spent with Patient: Greater than 35 minutes spent on this patients care, greater than 50% of time spent counseling, educating, and coordinating care regarding the above mentioned plan. ICD10 Worksheet Patient Problems: Problems Problem Status Onset Ataxia Acute Carotid stenosis, bilateral Acute Nausea & vomiting Acute Arthrodesis status Acute Cervical stenosis of spinal canal Acute
--- NOTE | 2019-03-10 14:49 | ASMTCMCOM ---
CM Note CM Note Notes: 03/10/2019 Case Management Note Met w/[facility] to discuss home care. Faxed referrals via [facility]. [facility] accepted pt. Case Management d/c poc: [facility] RN PT OT Case Management to follow. Date Signed: 03/10/2019 02:48 PM Electronically Signed By:Lissett Rodríguez RN
[2019-03-10] MEDS ORDERED: LACTULOSE 20 GM/30 ML UDCUP PO PRN (15:30)
[2019-03-10] MEDS ORDERED: POLYETHYLENE GLYCOL 3350 17 GM PKT PO PRN (15:30)
[2019-03-10] MEDS ORDERED: MAGNESIUM HYDROXIDE 30 ML UDCUP PO PRN (15:30)
[2019-03-10] MEDS ORDERED: BISACODYL 10 MG SUPP PR PRN (15:30)
[2019-03-10] MEDS: SENNOSIDES/DOCUSATE SODIUM TAB PO SCH (19:56)
[2019-03-10] MEDS: INSULIN GLARGINE 100 UNITS/ML UNIT SC SCH (19:57)
[2019-03-10] MEDS: ATORVASTATIN CALCIUM 40 MG TAB PO SCH (19:57)
[2019-03-10] MEDS: PATCH REMOVAL 1 EA PATCH TD SCH (21:00)
[2019-03-10] MEDS: traMADol 50 MG TAB PO PRN (21:05)
[2019-03-11] MEDS: ACETAMINOPHEN 325 MG TAB PO PRN (02:38)
[2019-03-11 04:30] LABS: PLATELET COUNT 146 10^3/uL (150-400)
[2019-03-11] MEDS: HEPARIN 5,000 UNIT/0.5 ML INJ SC SCH ×3 (06:11→20:50)
[2019-03-11] MEDS: INSULIN LISPRO 100 UNIT/ML SC SCH ×3 (07:33→18:04)
[2019-03-11] MEDS: SENNOSIDES/DOCUSATE SODIUM TAB PO SCH ×2 (10:12→20:48)
[2019-03-11] MEDS: amLODIPine BESYLATE 5 MG TAB PO SCH (10:13)
[2019-03-11] MEDS: PRESERVISION AREDS2 FORMULA EYE VIT 1 EACH PO SCH ×2 (10:13→20:48)
[2019-03-11] MEDS: ASPIRIN 81 MG CHEWABLE TAB PO SCH (10:13)
[2019-03-11] MEDS: ISOSORBIDE MONONITRATE 30 MG TAB.SR PO SCH (10:13)
[2019-03-11] MEDS: GABAPENTIN 100 MG CAP PO SCH ×2 (10:14→20:48)
[2019-03-11] MEDS: CLOPIDOGREL BISULFATE 75 MG TAB PO SCH (10:14)
[2019-03-11] MEDS: METOPROLOL SUCCINATE XR 100 MG TAB PO SCH (10:14)
[2019-03-11] MEDS: CHOLECALCIFEROL VIT D3 2,000 UNITS TAB/CAP PO SCH (10:14)
[2019-03-11] MEDS: LIDOCAINE 4%/MENTHOL 1% PATCH TD SCH (10:16)
[2019-03-11] MEDS: FUROSEMIDE 40 MG TAB PO SCH (10:32)
--- NOTE | 2019-03-11 12:08 | HOSPPROG ---
Hospitalist Progress Note Assessment/Plan: The patient is a 88-year-old female with PMH psittacosis, HTN, CKD, DM, CAD, FAITH who was admitted for dizziness and ataxia. ASSESSMENT/PLAN: Bradycardia Accelerated HTN, persistent Ataxia and Dizziness, resolving Orthostatic hypotension CAD, s/p remote stents Sinus pause on telemetry, resolved Abnl EKG-- Ventricular bigeminy w/ PVCs, LVH, LAE -Pt has been on BID metoprolol succinate. Reduced dose by half yesterday. Changing to metoprolol tartrate. Hold dose tonight. -Increased Imdur from 60mg to 90mg yesterday. -Amlodipine 5mg. Avoid increasing as it will likely cause leg swelling. -Increase hydralazine from BID to TID dosing today. -Consulting Cardiology for additional recs. Severe carotid artery stenosis, bilateral Remote lacunar infarct -ASA, statin, Plavix -Pt to FU w/ Dr. Moses for FAITH in office. CHRIS on CKD st 3 -Cr increased from 2 to 2.6 -Pt has Hx contrast induced nephropathy when she had CTA in the past. -Likely also a/w HTN and reduced CO, kidneys not perfusing well. -Hold Lasix. -Check renal tests- UA, alb:Cr, FeNa (not as reliable w/ CKD) -Give 500cc today. -Continue to monitor. L Low back pain/DJD/L sciatica Chronic low back pain -lidocaine patch. ice/heat, acetaminophen as needed. -Recommended that pt try tramadol w/ food, as N/V was likely a/w consuming on empty stomach. Hypoxemia, chronic - on O2 DM2 Anemia, mild Chronic peripheral edema, controlled -Continue home meds. -ISU. PT/OT. VTE prophylaxis: Heparin Code Status: DNR Status: inp for > 2 midnight stay. Disposition: Med tele --tomorrow may go home in 2-3 days w/ home care if improved. ____ SUBJECTIVE: Pt feels better today-- denies lightheadedness. Still w/ back pain , but tolerated tramatol. OBJECTIVE: Physical Exam: General: The patient is an elderly female who is alert and in no acute distress. HEENT: normocephalic, extraocular movements intact, conjunctivae clear. Mucous membranes moist. Neck: trachea midline, no visible masses. Resp: unlabored. Abd: soft and nondistended. Musculoskeletal: Normal muscle tone/bulk. Neuro: cranial nerves II - XII grossly intact. Intact gross motor and sensory function. Psych: Appropriate mood and appropriate affect. Skin: No pallor. No petechiae. Heme/lymph: no peripheral edema. Labs/Imaging/Other Tests: Personally reviewed/interpreted. Objective: Vital Signs Temp Pulse Resp BP Pulse Ox 36.8 C 55 L 18 182/67 H 96 03/11/19 11:18 03/11/19 11:18 03/11/19 11:18 03/11/19 11:18 03/11/19 11:18 Laboratory Results 03/11/19 03:06 03/11/19 03:06 03/10/19 03/11/19 03/12/19 05:59 05:59 05:59 Intake Total 1100 1100 Output Total 1000 700 Balance 100 400 - Time Spent With Patient Time Spent with Patient: greater than 35 minutes Time Spent with Patient: Greater than 35 minutes spent on this patients care, greater than 50% of time spent counseling, educating, and coordinating care regarding the above mentioned plan. ICD10 Worksheet Patient Problems: Problems Problem Status Onset Ataxia Acute Carotid stenosis, bilateral Acute Nausea & vomiting Acute Arthrodesis status Acute Cervical stenosis of spinal canal Acute
[2019-03-11] MEDS ORDERED: NS 500 ML IV ONE (12:46)
[2019-03-11] MEDS: ATORVASTATIN CALCIUM 40 MG TAB PO SCH (20:49)
[2019-03-11] MEDS: PATCH REMOVAL 1 EA PATCH TD SCH (20:50)
[2019-03-11] MEDS: INSULIN GLARGINE 100 UNITS/ML UNIT SC SCH (20:50)
[2019-03-11] MEDS: traMADol 50 MG TAB PO PRN (20:51)
[2019-03-12] MEDS: ACETAMINOPHEN 325 MG TAB PO PRN (02:23)
[2019-03-12] MEDS: HEPARIN 5,000 UNIT/0.5 ML INJ SC SCH ×3 (05:49→20:20)
[2019-03-12] MEDS: INSULIN LISPRO 100 UNIT/ML SC SCH ×3 (08:05→17:43)
[2019-03-12] MEDS: SENNOSIDES/DOCUSATE SODIUM TAB PO SCH ×2 (08:59→20:21)
[2019-03-12] MEDS: traMADol 50 MG TAB PO PRN ×2 (08:59→20:52)
--- NOTE | 2019-03-12 08:59 | SOAPPROG ---
SOAP Progress Note Assessment/Plan: Assessment/Plan: 88 y/o F admitted with dizziness and ataxia in setting of taking tramadol for back pain. No acute CVA seen on MRI. Found to have severe bilateral carotid stenosis on CTA, R ICA 80-90%, L ICA 70-80%. Plan: If discharged, then pt has appointment to follow up with Dr. Moses on Tuesday at 2 pm to discuss CEA surgery. If still in house, then will see her tomorrow with Dr. Moses in hospital. Discussed risks and options of CEA. S: Sitting up in chair. No complaints. O: Alert Afebrile Loud carotid bruits bilaterally RRR No increased WOB Abdomen soft 03/12/19 08:54 Objective: Vital Signs Temp Pulse Resp BP Pulse Ox 36.6 C 61 18 175/68 H 96 03/12/19 07:14 03/12/19 07:14 03/12/19 07:14 03/12/19 07:14 03/12/19 07:14 Laboratory Results 03/11/19 03:06 03/12/19 03:15 03/11/19 03/12/19 03/13/19 05:59 05:59 05:59 Intake Total 1100 750 Output Total 700 1300 300 Balance 400 -550 -300 ICD10 Worksheet Patient Problems: Problems Problem Status Onset Ataxia Acute Carotid stenosis, bilateral Acute Nausea & vomiting Acute Arthrodesis status Acute Cervical stenosis of spinal canal Acute
[2019-03-12] MEDS: ISOSORBIDE MONONITRATE 30 MG TAB.SR PO SCH (09:00)
[2019-03-12] MEDS: amLODIPine BESYLATE 5 MG TAB PO SCH (09:00)
[2019-03-12] MEDS: CLOPIDOGREL BISULFATE 75 MG TAB PO SCH (09:00)
[2019-03-12] MEDS: ASPIRIN 81 MG CHEWABLE TAB PO SCH (09:00)
[2019-03-12] MEDS: CHOLECALCIFEROL VIT D3 2,000 UNITS TAB/CAP PO SCH (09:00)
[2019-03-12] MEDS: GABAPENTIN 100 MG CAP PO SCH ×2 (09:00→20:19)
[2019-03-12] MEDS: METOPROLOL TARTRATE 50 MG TAB PO SCH ×2 (09:00→20:19)
[2019-03-12] MEDS: PRESERVISION AREDS2 FORMULA EYE VIT 1 EACH PO SCH ×2 (09:00→20:18)
[2019-03-12] MEDS: LIDOCAINE 4%/MENTHOL 1% PATCH TD SCH (09:01)
--- NOTE | 2019-03-12 17:52 | HOSPPROG ---
Hospitalist Progress Note Assessment/Plan: Pre-syncope - likely 2/2 critical carotid artery stenosis, improved Critical b/l carotid artery stenosis - Dr. Moses to evaluate tomorrow for probable inpt Bradycardia with sinus pause - BB halved, HR 60-70's today Accelerated hypertension - BP better today -cont norvasc, metoprolol (lower dose), hydralazine (increased to TID), imdur (increased from 60 to 90) CAD, s/p remote stents - chest pain free Remote lacunar infarct - now with critical FAITH -ASA, statin, Plavix CHRIS on CKD st 3 - Cr increased from 2 to 2.6 --> 2.4 today. Pt has h/o contrast induced nephropathy when she had CTA in the past. -Lasix held today, will resume in AM as Cr back to baseline (2-2.4) Chronic low back pain -lidocaine patch. ice/heat, tylenol, prn tramadol Hypoxemia, chronic - on O2 DM2 - cont basal/bolus insulin VTE prophylaxis: Heparin Code Status: DNR Disposition: cont inpt Subjective: Pt feels better. No longer getting dizzy, but hasn't been as active here. No CP or SOB. Eating well. Objective: Vital Signs Temp Pulse Resp BP Pulse Ox 36.8 C 53 L 18 117/53 L 97 03/12/19 15:55 03/12/19 15:55 03/12/19 15:55 03/12/19 15:55 03/12/19 15:55 Laboratory Results 03/11/19 03:06 03/12/19 03:15 03/11/19 03/12/19 03/13/19 05:59 05:59 05:59 Intake Total 1100 750 Output Total 700 1300 300 Balance 400 -550 -300 - Physical Exam Constitutional: no apparent distress Eyes: PERRL Ears, Nose, Mouth, Throat: moist mucous membranes Cardiovascular: regular rate and rhythym Respiratory: no respiratory distress, clear to auscultation Gastrointestinal: normoactive bowel sounds, soft, non-tender abdomen Skin: warm Musculoskeletal: full muscle strength Neurologic: AAOx3 Psychiatric: interacting appropriately ICD10 Worksheet Patient Problems: Problems Problem Status Onset Ataxia Acute Carotid stenosis, bilateral Acute Nausea & vomiting Acute Arthrodesis status Acute Cervical stenosis of spinal canal Acute
[2019-03-12] MEDS: ATORVASTATIN CALCIUM 40 MG TAB PO SCH (20:19)
[2019-03-12] MEDS: PATCH REMOVAL 1 EA PATCH TD SCH (20:20)
[2019-03-12] MEDS: INSULIN GLARGINE 100 UNITS/ML UNIT SC SCH (20:20)
[2019-03-13] MEDS: HEPARIN 5,000 UNIT/0.5 ML INJ SC SCH ×3 (06:06→21:17)
[2019-03-13] MEDS: INSULIN LISPRO 100 UNIT/ML SC SCH ×3 (08:27→17:21)
[2019-03-13] MEDS: ISOSORBIDE MONONITRATE 30 MG TAB.SR PO SCH (09:38)
[2019-03-13] MEDS: GABAPENTIN 100 MG CAP PO SCH ×2 (09:38→21:16)
[2019-03-13] MEDS: PRESERVISION AREDS2 FORMULA EYE VIT 1 EACH PO SCH ×2 (09:38→21:16)
[2019-03-13] MEDS: ASPIRIN 81 MG CHEWABLE TAB PO SCH (09:39)
[2019-03-13] MEDS: SENNOSIDES/DOCUSATE SODIUM TAB PO SCH ×2 (09:39→21:26)
[2019-03-13] MEDS: amLODIPine BESYLATE 5 MG TAB PO SCH (09:39)
[2019-03-13] MEDS: METOPROLOL TARTRATE 50 MG TAB PO SCH ×2 (09:40→21:17)
[2019-03-13] MEDS: LIDOCAINE 4%/MENTHOL 1% PATCH TD SCH (09:40)
[2019-03-13] MEDS: CHOLECALCIFEROL VIT D3 2,000 UNITS TAB/CAP PO SCH (09:40)
[2019-03-13] MEDS: CLOPIDOGREL BISULFATE 75 MG TAB PO SCH (09:40)
[2019-03-13] MEDS: FUROSEMIDE 40 MG TAB PO SCH (09:56)
--- NOTE | 2019-03-13 11:21 | ASMTCMCOM ---
CM Note CM Note Notes: 03/13/2019 Case Management Note Discussed in rounds today. Pt has consult today with Dr. Moses to discuss surgery to address critical carotid artery stenosis. Therapies continue to recommend home care. Case Management d/c poc: [facility] RN PT OT Case Management to follow. Date Signed: 03/13/2019 11:18 AM Electronically Signed By:Lissett Rodríguez RN
--- NOTE | 2019-03-13 14:41 | HOSPPROG ---
Hospitalist Progress Note Assessment/Plan: Pre-syncope - likely 2/2 critical carotid artery stenosis, improved Critical b/l carotid artery stenosis - to OR tomorrow with Dr. Moses for Bradycardia with sinus pause - BB halved, HR 60-70's today Accelerated hypertension - BP's labile, 110's-180's -cont norvasc, metoprolol (lower dose), hydralazine (increased to TID), imdur (increased from 60 to 90) CAD, s/p remote stents - chest pain free Remote lacunar infarct - now with critical FAITH -ASA, statin, Plavix - tomorrow as above CHRIS on CKD st 3 - Cr increased from 2 to 2.6 --> 2.2 today. Pt has h/o contrast induced nephropathy when she had CTA in the past. -follow, avoid nephrotoxic agents Pyuria - afebrile, no symptoms, Cx pending Chronic low back pain -lidocaine patch. ice/heat, tylenol, prn tramadol -outpt f/u with Dr. Hall who she has seen in past Hypoxemia, chronic - on O2 DM2 - bg 49 this am, will decrease lantus to 12 units, follow VTE prophylaxis: Heparin Code Status: DNR Disposition: cont inpt Subjective: Pt feels well. No CP, SOB, or dizziness. Had low bg this am, eating well today. No fevers. No urinary symptoms Objective: Vital Signs Temp Pulse Resp BP Pulse Ox 37.2 C 76 19 160/60 H 97 03/13/19 11:42 03/13/19 11:42 03/13/19 11:42 03/13/19 11:42 03/13/19 11:42 Laboratory Results 03/11/19 03:06 03/13/19 09:10 03/12/19 03/13/19 03/14/19 05:59 05:59 05:59 Intake Total 750 730 Output Total 1300 800 200 Balance -550 -70 -200 - Physical Exam Constitutional: no apparent distress Eyes: PERRL Ears, Nose, Mouth, Throat: moist mucous membranes Cardiovascular: regular rate and rhythym Respiratory: no respiratory distress, clear to auscultation Gastrointestinal: normoactive bowel sounds, soft, non-tender abdomen Skin: warm Musculoskeletal: full muscle strength Neurologic: AAOx3 Psychiatric: interacting appropriately ICD10 Worksheet Patient Problems: Problems Problem Status Onset Carotid stenosis, bilateral Acute Cervical stenosis of spinal canal Acute Arthrodesis status Acute Nausea & vomiting Acute Ataxia Acute
--- NOTE | 2019-03-13 16:06 | SOAPPROG ---
KELLY Progress Note Assessment/Plan: Assessment: SEEN TODAY FOR BILAT CAROTID STENOSIS WITH CEREBRAL ISCHEMIC SYMPTOMS RISKS AND OPTIONS FULLY DISCUSSED AND TATY PROCEED WITH RIGHT CEA IN AM AND LEFT CEA IN2-3 WEEKS NEURO EXAM SYMMETRIC AND PHYSIOLOGIC CHEST CLEAR COR RR NECK BILAT BRUITS Plan:RT CEA IN AM 03/13/19 16:01 Objective: Vital Signs Temp Pulse Resp BP Pulse Ox 36.9 C 52 L 15 121/51 H 98 03/13/19 15:38 03/13/19 15:38 03/13/19 15:38 03/13/19 15:38 03/13/19 15:38 Laboratory Results 03/11/19 03:06 03/13/19 09:10 03/12/19 03/13/19 03/14/19 05:59 05:59 05:59 Intake Total 750 730 250 Output Total 1300 800 200 Balance -550 -70 50 ICD10 Worksheet Patient Problems: Problems Problem Status Onset Ataxia Acute Carotid stenosis, bilateral Acute Nausea & vomiting Acute Arthrodesis status Acute Cervical stenosis of spinal canal Acute
[2019-03-13] MEDS: traMADol 50 MG TAB PO PRN (21:15)
[2019-03-13] MEDS: ATORVASTATIN CALCIUM 40 MG TAB PO SCH (21:16)
[2019-03-13] MEDS: INSULIN GLARGINE 100 UNITS/ML UNIT SC SCH (21:17)
[2019-03-13] MEDS: PATCH REMOVAL 1 EA PATCH TD SCH (21:26)
[2019-03-14] MEDS: ACETAMINOPHEN 325 MG TAB PO PRN ×2 (01:13→23:26)
[2019-03-14] MEDS: INSULIN LISPRO 100 UNIT/ML SC SCH ×3 (08:41→18:51)
[2019-03-14] MEDS: METOPROLOL TARTRATE 50 MG TAB PO SCH ×2 (08:42→20:33)
[2019-03-14] MEDS: amLODIPine BESYLATE 5 MG TAB PO SCH (08:42)
[2019-03-14] MEDS: ISOSORBIDE MONONITRATE 30 MG TAB.SR PO SCH (08:42)
[2019-03-14] MEDS: FUROSEMIDE 40 MG TAB PO SCH (08:42)
[2019-03-14] MEDS: CLOPIDOGREL BISULFATE 75 MG TAB PO SCH (08:42)
[2019-03-14] MEDS: PRESERVISION AREDS2 FORMULA EYE VIT 1 EACH PO SCH ×2 (08:42→20:33)
[2019-03-14] MEDS: CHOLECALCIFEROL VIT D3 2,000 UNITS TAB/CAP PO SCH (08:42)
[2019-03-14] MEDS: GABAPENTIN 100 MG CAP PO SCH ×2 (08:43→20:33)
[2019-03-14] MEDS: SENNOSIDES/DOCUSATE SODIUM TAB PO SCH ×2 (08:43→20:36)
[2019-03-14] MEDS: ASPIRIN 81 MG CHEWABLE TAB PO SCH (08:43)
[2019-03-14] MEDS: LIDOCAINE 4%/MENTHOL 1% PATCH TD SCH (08:43)
--- NOTE | 2019-03-14 10:09 | HOSPPROG ---
Hospitalist Progress Note Assessment/Plan: Pre-syncope - likely 2/2 critical carotid artery stenosis, improved Critical b/l carotid artery stenosis - to OR today for unilateral , other side in 2-3 weeks Bradycardia with sinus pause - BB halved, HR 60-70's today Accelerated hypertension - BP's labile, 180's this am -increase norvasc back to home dose of 10 mg daily -cont metoprolol (lower dose as above), hydralazine (increased to TID), imdur (increased from 60 to 90) CAD, s/p remote stents - chest pain free Remote lacunar infarct - now with critical FAITH -ASA, statin, Plavix - today as above CHRIS on CKD st 3 - Cr increased from 2 to 2.6 --> 2.2 today. Pt has h/o contrast induced nephropathy when she had CTA in the past. -follow, avoid nephrotoxic agents Possible UTI - pt unsure abt urinary symptoms, >100K GNRs on UCx -await sensitivities, likely plan for short 3 day tx with po atbx Chronic low back pain -lidocaine patch. ice/heat, tylenol, prn tramadol -outpt f/u with Dr. Hall who she has seen in past Hypoxemia, chronic - stable, on O2 2 LPM baseline DM2 - had bg 49 yest am, better today on lower dose of lantus -cont lower dose of basal insulin plus SSI VTE prophylaxis: Heparin held today for OR Code Status: DNR Disposition: cont inpt Subjective: Pt feels ok. Denies CP or SOB. She is unsure if she's had urinary symptoms, mentions changes in ability to void, denies dysuria. No fevers, chills, N/V. Objective: Vital Signs Temp Pulse Resp BP Pulse Ox 37.1 C 85 15 184/76 H 2 L 03/14/19 09:43 03/14/19 09:43 03/14/19 09:43 03/14/19 09:43 03/14/19 09:43 Laboratory Results 03/11/19 03:06 03/14/19 03:12 03/13/19 03/14/19 03/15/19 05:59 05:59 05:59 Intake Total 730 250 Output Total 800 775 Balance -70 -525 - Physical Exam Constitutional: no apparent distress Eyes: PERRL Ears, Nose, Mouth, Throat: moist mucous membranes Cardiovascular: regular rate and rhythym Respiratory: no respiratory distress, clear to auscultation Gastrointestinal: normoactive bowel sounds, soft, non-tender abdomen Skin: warm Musculoskeletal: full muscle strength Neurologic: AAOx3 Psychiatric: interacting appropriately ICD10 Worksheet Patient Problems: Problems Problem Status Onset Ataxia Acute Carotid stenosis, bilateral Acute Nausea & vomiting Acute Arthrodesis status Acute Cervical stenosis of spinal canal Acute
[2019-03-14] MEDS ORDERED: amLODIPine BESYLATE 5 MG TAB PO ONE (10:10)
[2019-03-14] MEDS ORDERED: LR 1,000 ML IV ONE (10:33)
[2019-03-14] MEDS ORDERED: BUPIVACAINE 0.5% 30 ML SDV ONE (11:14)
[2019-03-14] MEDS ORDERED: THROMBIN (BOVINE) 20,000 UNIT SPRAY TP ONE (11:14)
[2019-03-14] MEDS ORDERED: PROTAMINE SULFATE 50 MG/5 ML VIAL IVP ONE (11:14)
[2019-03-14] MEDS ORDERED: ceFAZolin 2 GM/DEXTROSE 100 ML IV ONE (11:27)
--- NOTE | 2019-03-14 12:28 | PDANEPAE ---
ANE History of Present Illness R CEA ANE Past Medical History - Cardiovascular History Hx Hypertension: Yes Hx Coronary Artery / Peripheral Vascular Disease: Yes - Pulmonary History Hx Oxygen in Use at Home: Yes O2 in Use at Home (L/minute): 2 Hx Sleep Apnea: No Sleep Apnea Screening Result - Last Documented: Negative - Endocrine History Hx Diabetes: Yes - Renal History Hx Renal Disorders: Yes Renal History Comment: CKD - Neurological & Psychiatric Hx Hx Neurological and Psychiatric Disorders: Yes Neurological / Psychiatric History Comment: ataxia, carotid stenosis - Chronic Pain History Chronic Pain: Yes ANE Review of Systems Review of systems is: negative Review of Systems: - Exercise capacity Exercise capacity: >=4 METS ANE Patient History - Allergies Allergies/Adverse Reactions: No Known Allergies Allergy (Verified 03/08/19 17:02) - Home Medications Home medications: home medication list seen and reviewed Home Medications: Aspirin [Aspirin 81mg (*)] 81 mg PO DAILY 07/21/15 [Last Taken 04/13/18] Atorvastatin Calcium [Lipitor 40 mg (*)] 40 mg PO HS 07/21/15 [Last Taken ] C/E/Zn/Cu/OM3/DHA/EPA/LUT/ZEAX [Preservision Areds 2 Softgel] 1 each PO BID [Last Taken 04/12/18] Clopidogrel Bisulfate [Clopidogrel] 75 mg PO DAILY 07/21/15 [Last Taken 04/13/18 ] Furosemide [Lasix 40 MG (*)] 40 mg PO DAILY 07/21/15 [Last Taken 04/12/18] hydrALAZINE [Apresoline 50 mg (*)] 50 mg PO BID 07/21/15 [Last Taken 04/13/18] Cholecalciferol Vit D3 [Vitamin D3 (*)] 2,000 units PO DAILY 04/10/18 [Last Taken 04/12/18] Gabapentin [Neurontin 100 MG (*)] 200 mg PO BID 04/10/18 [Last Taken 04/13/18] Metoprolol Succinate [Toprol Xl] 100 mg PO BID 04/10/18 [Last Taken 04/13/18] Acetaminophen [Tylenol 325mg (*)] 325 mg PO DAILY PRN 03/08/19 [Last Taken Unknown] Herbals/Supplements -Info Only 1 ea PO DAILY 03/08/19 [Last Taken Unknown] Insulin Glargine [Lantus] 18 unit SC HS 03/08/19 [Last Taken Unknown] Isosorbide Mononitrate [Isosorbide Mononitrate ER] 60 mg PO DAILY 03/08/19 [ Last Taken Unknown] amLODIPine BESYLATE [Norvasc 5 mg (*)] 5 mg PO DAILY 03/08/19 [Last Taken Unknown] traMADol [Ultram 50 mg (*)] 50 mg PO BID PRN 03/08/19 [Last Taken Unknown] - NPO status NPO Status: no food or drink >8 hours NPO Since - Liquids (Date): 03/14/19 NPO Since - Liquids (Time): 00:00 NPO Since - Solids (Date): 03/14/19 NPO Since - Solids (Time): 00:00 - Smoking Hx Smoking Status: Never smoked - Alcohol Use Alcohol Use: None ANE Labs/Vital Signs - Labs Result Diagrams: 03/11/19 03:06 03/14/19 03:12 - Vital Signs Vital Signs: reviewed preoperatively; see RN documention for details Blood Pressure: 144/67 Heart Rate: 55 Respiratory Rate: 18 O2 Sat (%): 96 Height: 148.59 cm Weight: 61.7 kg ANE Physical Exam - Airway Neck exam: FROM Mallampati Score: Class 2 Mouth exam: dentures - Pulmonary Pulmonary: no respiratory distress - Cardiovascular Cardiovascular: regular rate and rhythym - ASA Status ASA Status: IV ANE Anesthesia Plan Anesthesia Plan: general endotracheal anesthesia Lines/Monitors: arterial line
[2019-03-14] MEDS ORDERED: DEXAMETHASONE 4 MG/ML VIAL ONE (12:39)
[2019-03-14] MEDS ORDERED: PROPOFOL 200 MG/20 ML VIAL ONE (12:39)
[2019-03-14] MEDS ORDERED: LIDOCAINE 2% 100 MG/5 ML SYR ONE (12:39)
[2019-03-14] MEDS ORDERED: ONDANSETRON 4 MG/2 ML VIAL ONE (12:39)
[2019-03-14] MEDS ORDERED: ROCURONIUM 50 MG/5 ML VIAL ONE (12:39)
[2019-03-14] MEDS ORDERED: fentaNYL 250 MCG/5 ML INJ ONE (12:39)
[2019-03-14] MEDS ORDERED: HEPARIN 10,000 UNIT/10 ML MDV (1,000 UNIT/ML) ONE (12:41)
[2019-03-14] MEDS ORDERED: PHENYLEPHRINE HCL 100 MCG/ML SYR ONE ×2 (12:51→14:35)
[2019-03-14] MEDS ORDERED: ePHEDrine SULFATE 25 MG/5 ML SYR ONE (14:52)
[2019-03-14] MEDS ORDERED: ONDANSETRON 4 MG/2 ML VIAL IVP PRN (14:56)
[2019-03-14] MEDS ORDERED: HYDROCODONE/APAP 5/325 TAB PO PRN (14:56)
[2019-03-14] MEDS ORDERED: fentaNYL 100 MCG/2 ML INJ IVP PRN (14:56)
[2019-03-14] MEDS ORDERED: DEXAMETHASONE 4 MG/ML VIAL IVP PRN (14:56)
[2019-03-14] MEDS ORDERED: NALOXONE HCL 0.4 MG/ML INJ IVP PRN (14:56)
[2019-03-14] MEDS ORDERED: HYDROmorphONE/DILAUDID 1 MG/ML INJ IVP PRN ×2 (14:56→15:10)
[2019-03-14] MEDS ORDERED: ACETAMINOPHEN 500 MG TAB PO PRN (14:56)
[2019-03-14] MEDS ORDERED: LABETALOL HCL 5 MG/ML 20 ML MDV IVP PRN (14:56)
[2019-03-14] MEDS ORDERED: MEPERIDINE 25 MG/0.5 ML AMP IVP PRN (14:56)
[2019-03-14] MEDS ORDERED: oxyCODONE IR 5 MG TAB PO PRN (14:56)
--- NOTE | 2019-03-14 14:56 | POSTANESTH ---
Post Anesthetic Evaluation Cardiovascular Status: Similar to Pre-Op Cond Respiratory Status: Similar to Pre-op Cond. Level of Consciousness/Mental Status: Can Participate in Eval, Mildly Sleepy, Arousable Pain Control: Adequate, Prn Tx Ordered Nausea/Vomiting Control: Adequate, Prn Tx Ordered Complications Possibly Related to Anesthesia: None Noted
--- NOTE | 2019-03-14 15:09 | POSTOPPROG ---
Post Op Note Date of Operation: 03/14/19 Surgeon: Jermaine Moses Bulb Planter: Dalrene Perez Anesthesiologist: Adam Mccarthy Anesthesia: GET(General Endotracheal) Pre-op Diagnosis: critical R carotid stenosis Post-op Diagnosis: same Procedure: R CEA c EEG monitoring, patch closure Findings: high bifurcation with nearly occluding calcified plaque, no eeg changes Inf/Abcess present in the surg proc area at time of surgery?: No EBL: 50-100 Complications: none Bowel Protocol: N/A Clean Closure Performed: N/A Specimen(s): plaque to pathology
[2019-03-14] MEDS ORDERED: ENALAPRILAT DIHYDRATE 1.25 MG/ML VIAL IVP PRN (15:10)
--- NOTE | 2019-03-14 20:22 | CPEKG ---
Test Reason : OPEN Blood Pressure : / mmHG Vent. Rate : 096 BPM Atrial Rate : 097 BPM P-R Int : 202 ms QRS Dur : 107 ms QT Int : 366 ms P-R-T Axes : 055 -38 051 degrees QTc Int : 463 ms Sinus tachycardia Ventricular trigeminy LAE, consider biatrial enlargement Left ventricular hypertrophy Confirmed by Jamir Fuentes ([id number]) on 03/14/2019 8:21:59 PM Referred By: Didier Quezada Confirmed By:Jamir Fuentes
[2019-03-14] MEDS: CEPHALEXIN 500 MG CAP PO SCH (20:33)
[2019-03-14] MEDS: PATCH REMOVAL 1 EA PATCH TD SCH (20:34)
[2019-03-14] MEDS: ATORVASTATIN CALCIUM 40 MG TAB PO SCH (20:36)
[2019-03-14] MEDS: INSULIN GLARGINE 100 UNITS/ML UNIT SC SCH (20:36)
--- NOTE | 2019-03-15 08:39 | SOAPPROG ---
SOAP Progress Note Assessment/Plan: Assessment/plan: 88 y/o F admitted with dizziness and ataxia. Found to have severe bilateral carotid stenosis Now s/p R CEA POD #1 VSS. Ok to take A-line out. Pain controlled. Continue asa, plavix and Lipitor. S: No complaints. Got up to go to bathroom a couple of times last night, dizziness better. O: Alert Afebrile Neck: R sided incision well dressed. Ecchymosis present inferiorly. Loud bruit on L side. RRR No increased WOB Abdomen soft 03/15/19 08:39 Objective: Vital Signs Temp Pulse Resp BP Pulse Ox 36.5 C 80 14 131/68 H 95 03/14/19 17:47 03/15/19 06:00 03/15/19 06:00 03/15/19 06:00 03/15/19 06:00 Laboratory Results 03/15/19 04:50 03/15/19 04:50 03/14/19 03/15/19 03/16/19 05:59 05:59 05:59 Intake Total 250 2310 Output Total 770 1700 Balance -525 610 ICD10 Worksheet Patient Problems: Problems Problem Status Onset Ataxia Acute Carotid stenosis, bilateral Acute Nausea & vomiting Acute Arthrodesis status Acute Cervical stenosis of spinal canal Acute
[2019-03-15] MEDS: LIDOCAINE 4%/MENTHOL 1% PATCH TD SCH (08:48)
[2019-03-15] MEDS: ISOSORBIDE MONONITRATE 30 MG TAB.SR PO SCH (08:49)
[2019-03-15] MEDS: CEPHALEXIN 500 MG CAP PO SCH (08:49)
[2019-03-15] MEDS: CLOPIDOGREL BISULFATE 75 MG TAB PO SCH (08:49)
[2019-03-15] MEDS: SENNOSIDES/DOCUSATE SODIUM TAB PO SCH ×2 (08:49→21:15)
[2019-03-15] MEDS: amLODIPine BESYLATE 5 MG TAB PO SCH (08:49)
[2019-03-15] MEDS: METOPROLOL TARTRATE 50 MG TAB PO SCH ×2 (08:49→21:15)
[2019-03-15] MEDS: PRESERVISION AREDS2 FORMULA EYE VIT 1 EACH PO SCH ×2 (08:49→21:14)
[2019-03-15] MEDS: GABAPENTIN 100 MG CAP PO SCH ×2 (08:50→21:14)
[2019-03-15] MEDS: FUROSEMIDE 40 MG TAB PO SCH (08:50)
[2019-03-15] MEDS: INSULIN LISPRO 100 UNIT/ML SC SCH ×3 (08:50→18:16)
[2019-03-15] MEDS: CHOLECALCIFEROL VIT D3 2,000 UNITS TAB/CAP PO SCH (08:50)
[2019-03-15] MEDS: ASPIRIN 81 MG CHEWABLE TAB PO SCH (08:50)
--- NOTE | 2019-03-15 09:42 | HOSPPROG ---
Hospitalist Progress Note Assessment/Plan: Pre-syncope - likely 2/2 critical carotid artery stenosis, improved Critical b/l carotid artery stenosis - S/P Rt , POD #1, doing well -post-op care per surgery -planning for left in 2-3 weeks as outpt Bradycardia with sinus pause - BB halved, HR now 70's-80's Accelerated hypertension - BP's better controlled -increased norvasc back to home dose of 10 mg daily -cont metoprolol (lower dose as above), hydralazine (increased to TID), imdur (increased from 60 to 90) CAD, s/p remote stents - chest pain free Remote lacunar infarct - now with critical FAITH -ASA, statin, Plavix -s/p Rt CHRIS on CKD st 3 - Cr at baseline, 2-2.4. Note h/o contrast induced nephropathy when she had CTA in the past. -follow, avoid nephrotoxic agents Possible UTI - pt unsure abt urinary symptoms, >100K E coli on UCx -short course po Keflex Chronic low back pain -lidocaine patch. ice/heat, tylenol, prn tramadol -outpt f/u with Dr. Hall who she has seen in past Hypoxemia, chronic - stable, on 2 LPM baseline DM2 - had bg 49 5/7, better on lower dose of lantus -cont lower dose of basal insulin plus SSI VTE prophylaxis: Resume BALDO Code Status: DNR Disposition: cont inpt, ok to transfer back to PCU or med/surg if ok with surgery Subjective: Pt doing well. Has a little neck pain from incision. Feels "a little woozy". No fevers/chills. She has ambulated to , up in chair eating breakfast. No CP or SOB. Objective: Vital Signs Temp Pulse Resp BP Pulse Ox 36.8 C 77 20 133/40 H 99 03/15/19 08:00 03/15/19 08:49 03/15/19 08:00 03/15/19 08:49 03/15/19 08:00 Laboratory Results 03/15/19 04:50 03/15/19 04:50 03/14/19 03/15/19 03/16/19 05:59 05:59 05:59 Intake Total 250 2310 Output Total 775 1700 Balance -525 610 - Physical Exam Constitutional: no apparent distress Eyes: PERRL Ears, Nose, Mouth, Throat: moist mucous membranes Cardiovascular: regular rate and rhythym Respiratory: no respiratory distress, clear to auscultation Gastrointestinal: normoactive bowel sounds, soft, non-tender abdomen Skin: warm Musculoskeletal: full muscle strength Neurologic: AAOx3 Psychiatric: interacting appropriately ICD10 Worksheet Patient Problems: Problems Problem Status Onset Ataxia Acute Carotid stenosis, bilateral Acute Nausea & vomiting Acute Arthrodesis status Acute Cervical stenosis of spinal canal Acute
--- NOTE | 2019-03-15 10:45 | SOAPPROG ---
KELLY Progress Note Assessment/Plan: Assessment: SEEN TODAY FOR BILAT CAROTID STENOSIS WITH CEREBRAL ISCHEMIC SYMPTOMS RISKS AND OPTIONS FULLY DISCUSSED AND TATY PROCEED WITH RIGHT CEA IN AM AND LEFT CEA IN2-3 WEEKS NEURO EXAM SYMMETRIC AND PHYSIOLOGIC CHEST CLEAR COR RR NECK BILAT BRUITS Plan:RT CEA IN AM 03/13/19 16:01 03/15/19 10:44 DOING WELL/VITAL SIGNS STABLE/WOUND OKAY/NEURO EXAM INTACT/AFEBRILE/CHEST CLEAR/ COR REGULAR RHYTHM TRANSFER TO [facility] Objective: Vital Signs Temp Pulse Resp BP Pulse Ox 36.8 C 77 20 133/40 H 99 03/15/19 08:00 03/15/19 08:49 03/15/19 08:00 03/15/19 08:49 03/15/19 08:00 Laboratory Results 03/15/19 04:50 03/15/19 04:50 03/14/19 03/15/19 03/16/19 05:59 05:59 05:59 Intake Total 250 2310 Output Total 775 1700 Balance -525 610 ICD10 Worksheet Patient Problems: Problems Problem Status Onset Ataxia Acute Carotid stenosis, bilateral Acute Nausea & vomiting Acute Arthrodesis status Acute Cervical stenosis of spinal canal Acute
[2019-03-15] MEDS: INSULIN GLARGINE 100 UNITS/ML UNIT SC SCH (21:13)
[2019-03-15] MEDS: HEPARIN 5,000 UNIT/0.5 ML INJ SC SCH (21:14)
[2019-03-15] MEDS: ATORVASTATIN CALCIUM 40 MG TAB PO SCH (21:14)
[2019-03-15] MEDS: PATCH REMOVAL 1 EA PATCH TD SCH (21:25)
--- NOTE | 2019-03-15 21:46 | GOP ---
[f rep st] OPERATIVE REPORT DATE OF OPERATION: 03/14/2019 SURGEON: Jermaine Moses MD LAUNDRY AIDE: NEEMA Mancia ANESTHESIOLOGIST: Dr. Mccarthy. PREOPERATIVE DIAGNOSIS: Critical right carotid stenosis. POSTOPERATIVE DIAGNOSIS: Critical right carotid stenosis. PROCEDURE PERFORMED: Right carotid endarterectomy with EEG monitoring. FINDINGS: The patient was found to have a very tight internal carotid calcified stenosis with a very high bifurcation up underneath her jaw, making exposure very difficult. In addition, she had previo us neck surgery for cervical fusion, creating a fair amount of scar tissue in the area. She had no E EG changes or difficulties. DESCRIPTION OF PROCEDURE: The patient was taken to the operating room where she received satisfactor y general endotracheal anesthesia by Dr. Mccarthy. She was placed in the supine position, prepped an d draped in usual sterile fashion. She was systemically heparinized prior to induction of anesthesia . Incision was made along the anterior border of the sternocleidomastoid muscle and carried down thr ough the platysma and subcutaneous tissue. The cervical fascia was incised. A difficult, tedious di ssection then ensued because of scar tissue in the area making identification of structures very diff icult. The common carotid artery was eventually exposed and encircled with vessel loop. The dissect ion extended cephalad up to the bifurcation and well up above that area. This required a fair amount of retraction on the jaw and division of the digastric tendon. The hypoglossal nerve was identified and spared from injury and the internal carotid artery was exposed well up underneath the gel and co ntrolled with a vessel loop. The external carotid was also controlled with vessel loop. After adequ ate exposure was achieved, additional heparin was given and after adequate circulation time, the vess els were occluded. An arteriotomy was made in the common carotid artery and extended up through the very tight plaque into the softer internal carotid above. Good backflow was present from the interna l carotid. Placing a shunt would have been extremely difficult with the limited exposure. She had n o EEG changes. An expeditious endarterectomy was then done, achieving a good feathered end in the in ternal carotid. All vessels were flushed. The arteriotomy was closed with a Dacron patch with a run mekhi Hemashield 7 suture. Flow was first established through the external carotid and then back thro ugh the internal carotid. Some leaks in the suture line were repaired with interrupted Hemashield 7 sutures. She had no EEG changes or other problems. Hemostasis was assured. The heparin was reverse d with protamine. The wound was irrigated. Some topical thrombin was placed in the operative bed an d the wound was closed in layers using 3-0 Vicryl for the cervical fascia, 3-0 Vicryl for the platysm a and subcutaneous tissue, and a running 3-0 Monocryl subcuticular stitch for the skin. The posterio r flap was infiltrated with 0.50% Marcaine. She tolerated the procedure well and was taken to the re covery room in good condition. /[id number]/MODL
[2019-03-15] MEDS: traMADol 50 MG TAB PO PRN (22:39)
[2019-03-16] MEDS: ACETAMINOPHEN 325 MG TAB PO PRN (05:12)
[2019-03-16] MEDS: HEPARIN 5,000 UNIT/0.5 ML INJ SC SCH ×3 (05:13→21:41)
[2019-03-16] MEDS: INSULIN LISPRO 100 UNIT/ML SC SCH ×3 (08:23→18:21)
[2019-03-16] MEDS: amLODIPine BESYLATE 5 MG TAB PO SCH (08:24)
[2019-03-16] MEDS: CLOPIDOGREL BISULFATE 75 MG TAB PO SCH (08:24)
[2019-03-16] MEDS: PRESERVISION AREDS2 FORMULA EYE VIT 1 EACH PO SCH ×2 (08:24→21:41)
[2019-03-16] MEDS: CHOLECALCIFEROL VIT D3 2,000 UNITS TAB/CAP PO SCH (08:24)
[2019-03-16] MEDS: GABAPENTIN 100 MG CAP PO SCH ×2 (08:24→21:40)
[2019-03-16] MEDS: METOPROLOL TARTRATE 50 MG TAB PO SCH ×2 (08:25→23:08)
[2019-03-16] MEDS: ASPIRIN 81 MG CHEWABLE TAB PO SCH (08:25)
[2019-03-16] MEDS: SENNOSIDES/DOCUSATE SODIUM TAB PO SCH ×2 (08:25→21:42)
[2019-03-16] MEDS: FUROSEMIDE 40 MG TAB PO SCH (08:25)
[2019-03-16] MEDS: LIDOCAINE 4%/MENTHOL 1% PATCH TD SCH (08:25)
[2019-03-16] MEDS: ISOSORBIDE MONONITRATE 30 MG TAB.SR PO SCH (08:25)
[2019-03-16 08:31] LABS: PLATELET COUNT 130 10^3/uL (150-400)
--- NOTE | 2019-03-16 08:57 | SOAPPROG ---
SOAP Progress Note Assessment/Plan: Assessment/plan: 88 y/o F admitted with dizziness and ataxia. Found to have severe bilateral carotid stenosis Now s/p R CEA POD #2 Pain controlled. Continue asa, plavix and Lipitor. Febrile. CBC and chest xray ordered. S: C/o coughing up phlegm. No other complaints. Denies chills and malaise. O: Alert Febrile today, up to 38.4 Neck: R sided incision well dressed. Ecchymosis present inferiorly. Loud bruit on L side. RRR Crackles in bilateral bases, No increased WOB Abdomen soft 03/16/19 08:56 Objective: Vital Signs Temp Pulse Resp BP Pulse Ox 37.9 C 79 14 131/55 H 94 03/16/19 07:34 03/16/19 07:34 03/16/19 07:34 03/16/19 07:34 03/16/19 07:34 Microbiology 03/13/19 07:46 Urine Culture - Final Urine,Clean Catch Escherichia Coli One [place] Type Laboratory Results 03/16/19 08:19 03/16/19 05:40 03/15/19 03/16/19 03/17/19 05:59 05:59 05:59 Intake Total 2310 Output Total 1700 100 Balance 610 -100 ICD10 Worksheet Patient Problems: Problems Problem Status Onset Ataxia Acute Carotid stenosis, bilateral Acute Nausea & vomiting Acute Arthrodesis status Acute Cervical stenosis of spinal canal Acute
[2019-03-16] MEDS ORDERED: CEPHALEXIN 250 MG CAP PO ONE (09:00)
--- NOTE | 2019-03-16 12:03 | HOSPPROG ---
Hospitalist Progress Note Assessment/Plan: 88 y/o F admitted with dizziness and ataxia. Found to have severe bilateral carotid stenosis. First encounter, chart reviewed. *Pre-syncope -resolved *Critical b/l carotid artery stenosis - S/P Rt CEA, POD #2, doing well -needs Left CEA in 2-3 weeks *fevers -on treatment for UTI -chest x ray ordered *Bradycardia with sinus pause - BB halved, HR now 70's-80's -reviewed telemetry and she has has been in sinus rhythm w frequent PVC's *Accelerated hypertension - BP's better controlled -Norvasc 10 mg -cont metoprolol (lower dose than home dose), hydralazine (increased to TID), Imdur (decreased to 60 from 90) -parameters placed as when to hold -bp has been trending down and she may not need all the above *CAD, s/p remote stents - chest pain free *Remote lacunar infarct -ASA, statin, Plavix -s/p Rt CEA *CHRIS on CKD st 3 - Cr at baseline, 2-2.4. - h/o contrast induced nephropathy when she had CTA in the past. -creat is 2.7 -will repeat in a.m. -she looks clinically dry -gently hydrate overnight and recheck labs in a.m. -she is on Lasix, and concerned she hasn't been taking in enough fluids *Possible UTI -has no symptoms -started on short course of Keflex ->100k of ecoli on urine cx *Chronic low back pain -lidocaine patch. ice/heat, tylenol, prn tramadol -f/u with Dr Hall *DM2 - had bg 49 5/7, glucoses high today -increase Lantus this evening -SSI VTE prophylaxis: heparin tid Plan: will hold Lasix for tomorrow morning and if kidney function is improved can resume, will gently hydrate her overnight, ask the nursing staff to do PVRs and monitor her intake and output. Will recheck a chemistry panel in the morning. Subjective: Amanda says she is feeling fine, no complaints. Objective: Vital Signs Temp Pulse Resp BP Pulse Ox 37.0 C 79 14 131/55 H 94 03/16/19 10:57 03/16/19 07:34 03/16/19 07:34 03/16/19 07:34 03/16/19 07:34 Microbiology 03/13/19 07:46 Urine Culture - Final Urine,Clean Catch Escherichia Coli One [place] Type Laboratory Results 03/16/19 08:19 03/16/19 05:40 03/15/19 03/16/19 03/17/19 05:59 05:59 05:59 Intake Total 2310 Output Total 1700 100 Balance 610 -100 - Physical Exam Constitutional: appears nourished, not in pain, chronically ill appearing Eyes: PERRL Ears, Nose, Mouth, Throat: hard of hearing Cardiovascular: regular rate and rhythym, other (with frequent extra beats) Respiratory: no respiratory distress, reduced air movement, No no rales or rhonchi Skin: warm, other (ecchymosis on right neck area extending into the chest wall) Musculoskeletal: generalized weakness Neurologic: AAOx3 Psychiatric: interacting appropriately ICD10 Worksheet Patient Problems: Problems Problem Status Onset Carotid stenosis, bilateral Acute Cervical stenosis of spinal canal Acute Arthrodesis status Acute Nausea & vomiting Acute Ataxia Acute
[2019-03-16] MEDS ORDERED: NS 1,000 ML IV SCH (16:15)
--- NOTE | 2019-03-16 16:43 | ASMTCMCOM ---
CM Note CM Note Notes: CM met with pt in her room and also reviewed chart. She was admitted through the ED on 03/08 for ataxia, nausea, and vomiting. She has since been found to have severe bilateral carotid stenosis. Pt lives alone in [place]. Her son Stanley lives nearby. She uses a walker at home. She has chronic left leg weakness. She also uses 2L of oxygen at night. CM LM for son regarding PT and OT recommendation that pt be discharged with home health PT and with 24-hour supervision. Confirmed with [facility] that pt is already on their list. LM for son to contact us for agencies that may be able to provide 24-hour supervision if needs a list. CM will continue to follow. CM D/C plan: TBD; likely home with [facility] and 24-hour supervision Date Signed: 03/16/2019 04:42 PM Electronically Signed By:Tracy Johnson
--- NOTE | 2019-03-16 18:14 | GCON ---
[f rep st] CONSULTATION DATE OF CONSULTATION: 03/13/2019 HISTORY OF PRESENT ILLNESS: Patient is an 88-year-old female who was admitted for some ataxia and we akness in her lower extremities. She is diabetic with some mild chronic renal insufficiency and damon nary artery disease. She presented with lightheadedness and dizziness with some overall weakness and ataxia. CTA and ultrasounds reveal severe bilateral carotid stenoses, but head MRI and CT scan were negative for any acute strokes. PAST MEDICAL HISTORY: Includes diabetes, coronary artery disease with coronary stents, hypertension, hyperlipidemia, chronic renal insufficiency. She has had some coronary stents. FAMILY HISTORY: Positive for congestive heart failure, hypertension. SOCIAL HISTORY: Reveals she is not a smoker. ALLERGIES: None. MEDICATIONS: Include: Tramadol, amlodipine, aspirin, Plavix, Lasix, metoprolol, Neurontin, vitamin D, and insulin. REVIEW OF SYSTEMS: Negative on a full 10-point review, except as related to the HPI. PHYSICAL EXAMINATION: GENERAL: Reveals an alert, cooperative 88-year-old female in no acute distres s. VITAL SIGNS: She is afebrile. HEAD AND NECK: Reveals no icterus or adenopathy. Pupils are equ al. EOMs are intact. Neck supple, but limited range of motion because of cervical fusion with a sca r on the anterior neck. She has bilateral carotid bruits. CHEST: Clear to auscultation and percuss ion. CARDIAC: Reveals a regular rhythm. ABDOMEN: Soft and nontender without masses. EXTREMITIES: Reveal full range of motion, full pulses. SKIN: Reveals no major lesions. NEUROLOGIC: Symmetric and physiologic with intact cranial nerves. PSYCH: Reveals her to be alert, oriented, cooperative, and appropriate. IMPRESSION: Severe carotid stenosis which may be causing some of her lightheadedness and dizziness. She has bilateral 80% to 90% carotid lesions with an occluded right vertebral. She does have an ope n left vertebral. She is somewhat high risk for carotid surgery because of her age and the extensive ness of her disease, as well as the difficulty in exposure of her disease because of her neck fusion. Risks and options have been fully discussed with the patient, and she wishes to proceed with surgic al repair. /[id number]/MODL
[2019-03-16] MEDS: INSULIN GLARGINE 100 UNITS/ML UNIT SC SCH (21:40)
[2019-03-16] MEDS: ATORVASTATIN CALCIUM 40 MG TAB PO SCH (21:41)
[2019-03-16] MEDS: PATCH REMOVAL 1 EA PATCH TD SCH (21:53)
[2019-03-17] MEDS: ACETAMINOPHEN 325 MG TAB PO PRN (05:16)
[2019-03-17] MEDS: HEPARIN 5,000 UNIT/0.5 ML INJ SC SCH ×3 (05:17→22:04)
--- NOTE | 2019-03-17 08:56 | SOAPPROG ---
KELLY Progress Note Assessment/Plan: Assessment: SEEN TODAY FOR BILAT CAROTID STENOSIS WITH CEREBRAL ISCHEMIC SYMPTOMS RISKS AND OPTIONS FULLY DISCUSSED AND TATY PROCEED WITH RIGHT CEA IN AM AND LEFT CEA IN2-3 WEEKS NEURO EXAM SYMMETRIC AND PHYSIOLOGIC CHEST CLEAR COR RR NECK BILAT BRUITS Plan:RT CEA IN AM 03/13/19 16:01 03/15/19 10:44 DOING WELL/VITAL SIGNS STABLE/WOUND OKAY/NEURO EXAM INTACT/AFEBRILE/CHEST CLEAR/ COR REGULAR RHYTHM TRANSFER TO TELE 03/17/19 08:55 AFEBRILE/VITAL SIGNS STABLE/NEURO INTACT/EATING OKAY WANTS TO GO HOME TODAY CHEST CLEAR AND SYMMETRIC/COR REGULAR RHYTHM/ABDOMEN SOFT PLAN: HOME TODAY FOLLOW-UP IN THE OFFICE NEXT WEEK FOR AN EVENTUAL LEFT CEA Objective: Vital Signs Temp Pulse Resp BP Pulse Ox 37.1 C 58 L 14 138/77 H 91 L 03/17/19 07:26 03/17/19 07:26 03/17/19 07:26 03/17/19 07:26 03/17/19 07:26 Laboratory Results 03/16/19 08:19 03/17/19 05:06 03/16/19 03/17/19 03/18/19 05:59 05:59 05:59 Intake Total 550 Output Total 100 Balance -100 550 ICD10 Worksheet Patient Problems: Problems Problem Status Onset Ataxia Acute Carotid stenosis, bilateral Acute Nausea & vomiting Acute Arthrodesis status Acute Cervical stenosis of spinal canal Acute
[2019-03-17] MEDS: INSULIN LISPRO 100 UNIT/ML SC SCH ×3 (09:39→17:51)
[2019-03-17] MEDS: ASPIRIN 81 MG CHEWABLE TAB PO SCH (09:41)
[2019-03-17] MEDS: amLODIPine BESYLATE 5 MG TAB PO SCH (09:41)
[2019-03-17] MEDS: METOPROLOL TARTRATE 50 MG TAB PO SCH ×2 (09:41→22:04)
[2019-03-17] MEDS: CLOPIDOGREL BISULFATE 75 MG TAB PO SCH (09:41)
[2019-03-17] MEDS: GABAPENTIN 100 MG CAP PO SCH ×2 (09:41→22:04)
[2019-03-17] MEDS: PRESERVISION AREDS2 FORMULA EYE VIT 1 EACH PO SCH ×2 (09:41→22:03)
[2019-03-17] MEDS: SENNOSIDES/DOCUSATE SODIUM TAB PO SCH ×2 (09:42→22:12)
[2019-03-17] MEDS: CHOLECALCIFEROL VIT D3 2,000 UNITS TAB/CAP PO SCH (09:42)
[2019-03-17] MEDS: ISOSORBIDE MONONITRATE 30 MG TAB.SR PO SCH (09:42)
[2019-03-17] MEDS: LIDOCAINE 4%/MENTHOL 1% PATCH TD SCH (09:45)
[2019-03-17] MEDS ORDERED: NS 1,000 ML IV SCH (10:45)
--- NOTE | 2019-03-17 15:22 | HOSPPROG ---
Hospitalist Progress Note Assessment/Plan: * Bilateral critical carotid stenosis s/p Right CEA -staged procedure - follow-up with Dr. Moses to schedule left -ASA/Plavix * Acute on chronic renal failure -creatinine continues to worsen -IVF x 1L -reduce BP meds * UTI - Ecoli -has not really been treated yet - now with fever -IV ceftriaxone * Bradycardia/pause due to beta-ion -metoprolol dose reduced * Accelerated HTN - probably due to bilateral severe carotid disease -BP now falling post surgery - reduce BP meds * CAD/stents * DM II -Lantus Subjective: Extreme dizziness yesterday, couldn't even shower with OT. Better today Objective: Vital Signs Temp Pulse Resp BP Pulse Ox 36.8 C 87 16 113/43 L 94 03/17/19 11:30 03/17/19 11:30 03/17/19 11:30 03/17/19 11:30 03/17/19 11:30 Laboratory Results 03/16/19 08:19 03/17/19 05:06 03/16/19 03/17/19 03/18/19 05:59 05:59 05:59 Intake Total 550 Output Total 100 Balance -100 550 MRI brain - no CVA CXR viewed, my personal interpretation is - mostly negative, possible a little CHF - Physical Exam Constitutional: no apparent distress, appears nourished, not in pain Cardiovascular: regular rate and rhythym, no murmur, rub, or gallop Respiratory: no respiratory distress, no rales or rhonchi, clear to auscultation Gastrointestinal: normoactive bowel sounds, soft, non-tender abdomen, no palpable masses Skin: no rashes or abrasions, no fluctuance, no induration Neurologic: AAOx3, sensation intact bilaterally Psychiatric: interacting appropriately, not anxious, not encephalopathic, thought process linear ICD10 Worksheet Patient Problems: Problems Problem Status Onset Carotid stenosis, bilateral Acute Cervical stenosis of spinal canal Acute Arthrodesis status Acute Nausea & vomiting Acute Ataxia Acute
--- NOTE | 2019-03-17 15:43 | ASMTCMCOM ---
CM Note CM Note Notes: CM met with pt and her daughter , Carmel Luna [phone], in pt's room. RN had spoken with them about the possibility of a SNF instead of 24-hour supervision and HC. CM discussed with daughter afterwards. Daughter and patient weren't too receptive to the idea of a SNF. CM left daughter a senior blue book so she could investigate SNFs and agencies that would provide 24-hour care. Also left message for son Stanley [phone]. CM will continue to follow. ROBIN D/C plan: TBD Date Signed: 03/17/2019 03:42 PM Electronically Signed By:Tracy Johnson
[2019-03-17] MEDS: ATORVASTATIN CALCIUM 40 MG TAB PO SCH (22:04)
[2019-03-17] MEDS: INSULIN GLARGINE 100 UNITS/ML UNIT SC SCH (22:06)
[2019-03-17] MEDS: PATCH REMOVAL 1 EA PATCH TD SCH (22:12)
[2019-03-18] MEDS: HEPARIN 5,000 UNIT/0.5 ML INJ SC SCH ×3 (04:47→21:01)
[2019-03-18 05:10] LABS: PLATELET COUNT 159 10^3/uL (150-400)
[2019-03-18] MEDS: SENNOSIDES/DOCUSATE SODIUM TAB PO SCH ×2 (08:12→21:00)
[2019-03-18] MEDS: ASPIRIN 81 MG CHEWABLE TAB PO SCH (08:12)
[2019-03-18] MEDS: ISOSORBIDE MONONITRATE 30 MG TAB.SR PO SCH (08:12)
[2019-03-18] MEDS: GABAPENTIN 100 MG CAP PO SCH ×2 (08:12→21:01)
[2019-03-18] MEDS: amLODIPine BESYLATE 5 MG TAB PO SCH (08:12)
[2019-03-18] MEDS: CHOLECALCIFEROL VIT D3 2,000 UNITS TAB/CAP PO SCH (08:12)
[2019-03-18] MEDS: CLOPIDOGREL BISULFATE 75 MG TAB PO SCH (08:12)
[2019-03-18] MEDS: PRESERVISION AREDS2 FORMULA EYE VIT 1 EACH PO SCH ×2 (08:13→21:01)
[2019-03-18] MEDS: METOPROLOL TARTRATE 50 MG TAB PO SCH ×2 (08:13→21:01)
--- NOTE | 2019-03-18 09:14 | ASMTCMCOM ---
CM Note CM Note Notes: CM met with pt and Dr. Hua this morning regarding daughter Carmel Luna's ([phone]) concern about taking care of pt at home, even with homecare. It was decided that pt will go to a SNF upon discharge and she expressed interest in [facility]. CM called daughter and she is agreeable. CM will put in referral and let [facility] know she does not need their homecare services afterall. Dr. Hua says she can go tomorrow if acceptance and authorization are received from [facility]. ROBIN D/C plan: SNF Date Signed: 03/18/2019 09:13 AM Electronically Signed By:Tracy Johnson
[2019-03-18] MEDS: INSULIN LISPRO 100 UNIT/ML SC SCH ×3 (09:46→17:52)
[2019-03-18] MEDS: LIDOCAINE 4%/MENTHOL 1% PATCH TD SCH (10:49)
--- NOTE | 2019-03-18 11:49 | ASMTCMCOM ---
CM Note CM Note Notes: [facility] has accepted pt. Asked for more updated therapy notes, which CM sent over. Authorization pending. CM D/C plan: SNF, probably [facility] Date Signed: 03/18/2019 11:48 AM Electronically Signed By:Tracy Johnson
--- NOTE | 2019-03-18 13:29 | SOAPPROG ---
KELLY Progress Note Assessment/Plan: Assessment: SEEN TODAY FOR BILAT CAROTID STENOSIS WITH CEREBRAL ISCHEMIC SYMPTOMS RISKS AND OPTIONS FULLY DISCUSSED AND TATY PROCEED WITH RIGHT CEA IN AM AND LEFT CEA IN2-3 WEEKS NEURO EXAM SYMMETRIC AND PHYSIOLOGIC CHEST CLEAR COR RR NECK BILAT BRUITS Plan:RT CEA IN AM 03/13/19 16:01 03/15/19 10:44 DOING WELL/VITAL SIGNS STABLE/WOUND OKAY/NEURO EXAM INTACT/AFEBRILE/CHEST CLEAR/ COR REGULAR RHYTHM TRANSFER TO TELE 03/17/19 08:55 AFEBRILE/VITAL SIGNS STABLE/NEURO INTACT/EATING OKAY WANTS TO GO HOME TODAY CHEST CLEAR AND SYMMETRIC/COR REGULAR RHYTHM/ABDOMEN SOFT PLAN: HOME TODAY FOLLOW-UP IN THE OFFICE NEXT WEEK FOR AN EVENTUAL LEFT CEA 03/18/19 13:29 WOUND OK/ NEURO INTACT/ HOME PER IM Objective: Vital Signs Temp Pulse Resp BP Pulse Ox 36.9 C 81 22 H 151/69 H 94 03/18/19 11:48 03/18/19 11:48 03/18/19 11:48 03/18/19 11:48 03/18/19 11:48 Laboratory Results 03/18/19 04:45 03/18/19 04:45 03/17/19 03/18/19 03/19/19 05:59 05:59 05:59 Intake Total 550 Output Total 600 350 Balance 550 -600 -350 ICD10 Worksheet Patient Problems: Problems Problem Status Onset Ataxia Acute Carotid stenosis, bilateral Acute Nausea & vomiting Acute Arthrodesis status Acute Cervical stenosis of spinal canal Acute
--- NOTE | 2019-03-18 13:31 | HOSPPROG ---
Hospitalist Progress Note Assessment/Plan: * Bilateral critical carotid stenosis s/p Right CEA -staged procedure - follow-up with Dr. Moses to schedule left -ASA/Plavix * Acute on chronic renal failure -slow improvement * UTI - Ecoli -IV ceftriaxone * Bradycardia/pause due to beta-ion -metoprolol dose reduced * Acute on chronic CHF -check ECHO - difficult volume status with ARF as well * CAD/stents * DM II -Lantus Subjective: SOB, coughing when eating Objective: Vital Signs Temp Pulse Resp BP Pulse Ox 36.9 C 81 22 H 151/69 H 94 03/18/19 11:48 03/18/19 11:48 03/18/19 11:48 03/18/19 11:48 03/18/19 11:48 Laboratory Results 03/18/19 04:45 03/18/19 04:45 03/17/19 03/18/19 03/19/19 05:59 05:59 05:59 Intake Total 550 Output Total 600 350 Balance 550 -600 -350 CXR viewed, my personal interpretation is - mild CHF - Physical Exam Constitutional: appears nourished, not in pain Cardiovascular: regular rate and rhythym, no murmur, rub, or gallop Respiratory: no rales or rhonchi, inspiratory crackles, respiratory distress, No expiratory wheeze, No rhonchi Gastrointestinal: normoactive bowel sounds, soft, non-tender abdomen, no palpable masses Skin: no rashes or abrasions, no fluctuance, no induration Neurologic: AAOx3, sensation intact bilaterally Psychiatric: interacting appropriately, not anxious, not encephalopathic, thought process linear ICD10 Worksheet Patient Problems: Problems Problem Status Onset Carotid stenosis, bilateral Acute Cervical stenosis of spinal canal Acute Arthrodesis status Acute Nausea & vomiting Acute Ataxia Acute
[2019-03-18] MEDS: ATORVASTATIN CALCIUM 40 MG TAB PO SCH (21:01)
[2019-03-18] MEDS: INSULIN GLARGINE 100 UNITS/ML UNIT SC SCH (21:01)
[2019-03-18] MEDS: PATCH REMOVAL 1 EA PATCH TD SCH (21:05)
[2019-03-18] MEDS: ACETAMINOPHEN 325 MG TAB PO PRN (21:07)
[2019-03-19] MEDS ORDERED: FUROSEMIDE 20 MG/2 ML VIAL IVP ONE ×2 (00:22→23:40)
[2019-03-19] MEDS: HEPARIN 5,000 UNIT/0.5 ML INJ SC SCH ×3 (05:14→20:58)
--- NOTE | 2019-03-19 09:08 | SOAPPROG ---
SOAP Progress Note Assessment/Plan: Assessment/plan: 88 y/o F admitted with dizziness and ataxia. Found to have severe bilateral carotid stenosis Now s/p R CEA POD #5 Pain controlled. Continue asa, plavix and Lipitor. Increased O2 needs and SOB. Echo ordered. Appreciate hospitalist input. S: "I've had better days". No pain from incision, but continues to have SOB. O: Alert Afebrile Neck: R sided incision cdi with steri strips intact. Ecchymosis present inferiorly. Loud bruit on L side. RRR Crackles in bilateral bases, increased WOB Abdomen soft Neuro: CN 2-12 grossly intact. 03/19/19 09:07 Objective: Vital Signs Temp Pulse Resp BP Pulse Ox 36.9 C 94 20 160/51 H 89 L 03/19/19 08:03 03/19/19 08:03 03/19/19 08:03 03/19/19 08:03 03/19/19 08:03 Laboratory Results 03/18/19 04:45 03/19/19 04:45 03/18/19 03/19/19 03/20/19 05:59 05:59 05:59 Intake Total 640 Output Total 600 900 Balance -600 -260 ICD10 Worksheet Patient Problems: Problems Problem Status Onset Ataxia Acute Carotid stenosis, bilateral Acute Nausea & vomiting Acute Arthrodesis status Acute Cervical stenosis of spinal canal Acute
--- NOTE | 2019-03-19 09:45 | ECHO ---
[email or web address] [address] Main: [phone] Echocardiography Examination Transthoracic Name: PIPER NOEL MR#: [id number] Study Date: 03/19/2019 Study Time: 08:42 AM Date of : 1930 Age: 88 year(s) Height: 147.3 cm (58 in.) Weight: 61.69 kg (136 lb.) BSA: 1.55 m2 Gender: Female Examination: Echo Contrast: Image Quality: Adequate Rhythm: Unknown Heart Rate: 56 bpm BP: 160 mmHg/51 mmHg Indication: CHF, S/P carotid endarterectomy Procedure Staff Referring Physician: Education Technician: Sunita Yost [facility] Reading Physician: Gilda Delgadillo MD Requesting Provider: Ordering Physician: Rachel Hua Indication: CHF, S/P carotid endarterectomy Measurements Chambers AV/MV Label Value Normal Value Label Value Normal Value LVOTd 1.8 cm (1.8cm - 2cm) AV PGmax 22 mmHg LVOT VTI 21.9 cm (18cm - 22cm) AV PGmean 11 mmHg LVDd, 2D 4.8 cm (3.9cm - 5.3cm) AV Vmax 2.37 m/s LVDs, 2D 2.8 cm (2.1cm - 4cm) BRANDI (VTI) 1.1 cm2 IVSd, 2D 0.9 cm (0.6cm - 1.1cm) MV E Vmax 1.06 m/s LVPWd, 2D 1 cm MV A Vmax 0.96 m/s LVEF, BP 69 % (55% - 70%) MV E/A 1.1 LVEF, 2D 72 % (54% - 74%) MV E/E' lateral 16.2 LVOT PGmean 2 mmHg MV E/E' septal 14.3 (0.45 - 1.25) LVOT Vmean 0.61 m/s MV DT 155 ms RVDd, 2D 3.6 cm (1.9cm - 3.8cm) MV E' septal 0.07 m/s TAPSE 2.2 cm MV VTI 25.6 cm LA Volume, BP 84 ml (22ml - 52ml) MVA D (continuity eq.) 2.2 cm2 LADs, 2D 4 cm (2.7cm - 3.8cm) MV PGmax 3 mmHg LAESV index, BP 54.2 ml/m2 MV PGmean 1 mmHg RA Area 16 cm2 MV Manju 3.2 cm Additional Vessels MR Vena Contracta 0.5 cm Label Value Normal Value MR Reg. Volume 31 ml AoAsc 2.1 cm MR Reg. Fraction 15 % Patient: PIPER NOEL Study Date: 03/19/2019 Page 1 of 3 08:42 AM AoRoot, 2D 2.4 cm (1.4cm - 2.6cm) MR Vmax 5.66 m/s MR VTI 180 cm MR (ERO) 0.17 cm2 MV E' lateral 0.07 m/s MR PISA Radius 0.7 cm MV E/E' mean 15.14 MR PISA Alias V. 30.8 cm/s MV E' mean 0.07 m/s TV/PV Label Value Normal Value RA Pressure 10 mmHg RVSP 59 mmHg TR Pmax 49 mmHg TR Vmax 3.5 m/s PV PGmax 4 mmHg PV Vmax, Caliper 0.99 m/s (0.6m/s - 0.9m/s) Conclusions 1. The left ventricle is normal in size and systolic function. Ejection fraction is 69%. Normal wall motion. Grade 2 diastolic dysfunction with elevated left ventricular filling pressure. 2. The right ventricle is normal in size and systolic function. 3. The left atrium is severely dilated 4. mild mitral annular calcification. No mitral stenosis. Moderate to severe mitral regurgitation. 5. the aortic valve is trileaflet with moderate calcification. Mild aortic stenosis. 6. Moderate to severe tricuspid regurgitation with estimated PA systolic pressure of 59 mm of mercury. 7. Compared with 07/23/2015 the left atrium is more dilated. Moderate to severe mitral regurgitation is now present. Tricuspid regurgitation has worsened and the degree of pulmonary hypertension has worsened. Findings Left Ventricle: Left ventricle is normal in size. Normal global systolic left ventricular function. EF evaluated by EF (biplane Vinson's). The ejection fraction, measured by Simpsons method, is 69 %. EF range is estimated at 65 % - 70 %. The LV wall thickness is at the upper limits of normal. There are no regional wall motion abnormalities. Grade II Diastolic Dysfunction. Doppler parameters are consistent with high ventricular filling pressure. Right Ventricle: Normal size right ventricle. Right ventricular systolic function is normal. Left Atrium: The left atrium is severely dilated. Right Atrium: The right atrium is normal in size. Mitral Valve: Moderate to severe mitral regurgitation. No mitral valve stenosis. There is calcification of the mitral valve . There is mild mitral thickening. Aortic Valve: Trivial aortic regurgitation is present. There is mild aortic stenosis. Aortic leaflets exhibit moderate calcification. The aortic valve is trileaflet. Aortic Valve Measurements AV Vmax is 2.37 m/s. AV PGmax is 22 mmHg. AV PGmean is 11 mmHg. BRANDI (VTI) is 1.1 cm2. Tricuspid Valve: Moderate to severe tricuspid regurgitation. No tricuspid valve stenosis. Right Ventricular systolic pressure is measured at 59 mmHg. Pulmonary artery pressure is moderately to severely increased. Patient: PIPER NOEL Study Date: 03/19/2019 Page 2 of 3 08:42 AM Pulmonic Valve: Pulmonic valve is poorly visualized. Trivial pulmonic valve regurgitation is present. Aorta: The aortic root size in 2D measures 2.4 cm. The aortic root exhibits normal size. The ascending aorta measures 2.1 cm. Ascending aorta is normal in size. Aorta Measurements AoRoot, 2D is 2.4 cm. Pulmonary Vein: There is systolic flow reversal in the pulmonary vein. IVC: The inferior vena cava is dilated. There is less than 50% respiratory excursion. Pericardium: No pericardial effusion. There is a pleural effusion present. Exam Details Procedure Ordered: Echo Procedure Status: Routine study Image Quality: Adequate Facility Location: Cardiac Echo 1 (No Signature Object) Patient: PIPER NOEL Study Date: 03/19/2019 Page 3 of 3 08:42 AM [id number]
[2019-03-19] MEDS: amLODIPine BESYLATE 5 MG TAB PO SCH (09:56)
[2019-03-19] MEDS: METOPROLOL TARTRATE 50 MG TAB PO SCH ×2 (09:56→20:55)
[2019-03-19] MEDS: PRESERVISION AREDS2 FORMULA EYE VIT 1 EACH PO SCH ×2 (09:57→20:55)
[2019-03-19] MEDS: ASPIRIN 81 MG CHEWABLE TAB PO SCH (09:57)
[2019-03-19] MEDS: CLOPIDOGREL BISULFATE 75 MG TAB PO SCH (09:57)
[2019-03-19] MEDS: GABAPENTIN 100 MG CAP PO SCH ×2 (09:57→20:58)
[2019-03-19] MEDS: CHOLECALCIFEROL VIT D3 2,000 UNITS TAB/CAP PO SCH (09:57)
[2019-03-19] MEDS: ISOSORBIDE MONONITRATE 30 MG TAB.SR PO SCH (09:57)
[2019-03-19] MEDS: FUROSEMIDE 40 MG/4 ML VIAL IVP SCH ×2 (09:59→14:35)
[2019-03-19] MEDS: LIDOCAINE 4%/MENTHOL 1% PATCH TD SCH (10:21)
[2019-03-19] MEDS: SENNOSIDES/DOCUSATE SODIUM TAB PO SCH ×2 (10:28→20:58)
[2019-03-19] MEDS: INSULIN LISPRO 100 UNIT/ML SC SCH ×3 (10:28→19:24)
--- NOTE | 2019-03-19 13:06 | PDCONSULT ---
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 Hyman. Her Cr is up to 2.7, not too far from baseline. She has had multiple insults this hospitalization, including contrast and fluctuations in BP. Now she is having volume overload and probably an exacerbation of CHF. - No need for HD at this time. Of note, she has previously said she would not want to undergo dialysis and today confirms this. - Agree with diuresis. - Will check urine studies. - Will continue to monitor. - Avoid hypotension and nephrotoxins. Hypervolemia: in setting of diastolic dysfunction, Lasix being held and getting IVFs. However, she has had a marked deterioration in her respiratory status this am. - Would work up for PE. - Agree with Lasix, can be increased if she has insufficient response. - Will place on 1L fluid restriction. HTN: BP markedly elevated on presentation, now better. With attempting fluid removal, if BP gets low would back down on hydralazine dosage. Thank you for the interesting consult. Nephrology will continue to follow, please call if you have any additional questions or concerns. H & P Stated Complaint: VERTIGO X 1 WEEK/DIZZY N/V TODAY POST NEW TRAMADOL MED Time Seen by Provider: 03/08/19 17:35 HPI/ROS: HPI: Ms. Jack is an 88 yo F with h/o CAD, DM, CKD 4 with baseline Cr lately around 2.2-2.[address] Hyman, and diastolic dysfunction. Pt presented to ER on 03/08/19 with complaints of 9 days of worsening ataxia, N/V, and dizziness, found to have markedly elevated BP, Cr at that time 2.0-2.1. She underwent CTA head and neck with contrast on 03/09, showing severe bilateral ICA stenoses. Plan was her to follow up the following week with surgery but then on 03/11 Cr bumped to 2.6. She was kept inpatient, Cr came down to 2.2. She underwent R CEA on 03/14, with plans for L CEA to be done in 2-3 weeks afterward. Since 03/16 , her Cr has bee 2.5-2.8, today is 2.7. In setting of her elevated Cr, her Lasix was held on 03/17 and 03/18 and she was given IVFs. This morning she has had sudden and severe respiratory deterioration, with hypoxia requiring her to go from needing 2L oxygen to now 10L via oxymask. She is being restarted on Lasix today, prompting consult. ROS: positive for dyspnea, fatigue, rest of 10-point ROS Negative Source: Patient, RN/MD - Personal History Current Tetanus Diphtheria and Acellular Pertussis (TDAP): Unsure - Medical/Surgical History Hx Asthma: No Hx Chronic Respiratory Disease: No Hx Diabetes: Yes Hx Cardiac Disease: Yes Hx Renal Disease: Yes Hx Cirrhosis: No Hx Alcoholism: No Hx HIV/AIDS: No Hx Splenectomy or Spleen Trauma: No Other PMH: heart stent x 3, DM type 2, CKD 4, cervical fusion 2 years ogo, cataracts, macular degeneration, constipation, - Family History Significant Family History: No pertinent family hx - Social History Smoking Status: Never smoked - Physical Exam Exam: General: alert and oriented, no acute distress Eyes: EOMI, PERRL OP: Clear, MMM Neck: supple, no thyromegaly CV: RRR, +2 edema BLE Resp: +crackles, good air movement, labored respirations on oxymask Abd: Soft, NT/ND Neuro: CN II-XII Grossly intact, no asterixis Psych: cooperative, appropriate mood and affect Skin: C/D/I, no rash Access: none Constitutional: Initial Vital Signs Temperature (C) 37.1 C 03/08/19 17:06 Heart Rate 56 L 03/08/19 17:06 Respiratory Rate 18 03/08/19 17:06 Blood Pressure 210/83 H 03/08/19 17:06 O2 Sat (%) 91 L 03/08/19 17:06 O2 Delivery Mode Nasal Cannula O2 (L/minute) 2 Allergies/Adverse Reactions: No Known Allergies Allergy (Verified 03/08/19 17:02) Home Medications: Medication Instructions Recorded Aspirin [Aspirin 81mg (*)] 81 mg PO DAILY 07/21/15 Atorvastatin Calcium [Lipitor 40 40 mg PO HS 07/21/15 mg (*)] C/E/Zn/Cu/OM3/DHA/EPA/LUT/ZEAX 1 each PO BID 07/21/15 [Preservision Areds 2 Softgel] Clopidogrel Bisulfate [Clopidogrel] 75 mg PO DAILY 07/21/15 Furosemide [Lasix 40 MG (*)] 40 mg PO DAILY 07/21/15 hydrALAZINE [Apresoline 50 mg (*)] 50 mg PO BID 07/21/15 Cholecalciferol Vit D3 [Vitamin D3 2,000 units PO DAILY 04/10/18 (*)] Gabapentin [Neurontin 100 MG (*)] 200 mg PO BID 04/10/18 Metoprolol Succinate [Toprol Xl] 100 mg PO BID 04/10/18 Acetaminophen [Tylenol 325mg (*)] 325 mg PO DAILY PRN 03/08/19 Herbals/Supplements -Info Only 1 ea PO DAILY 03/08/19 Insulin Glargine [Lantus] 18 unit SC HS 03/08/19 Isosorbide Mononitrate [Isosorbide 60 mg PO DAILY 03/08/19 Mononitrate ER] amLODIPine BESYLATE [Norvasc 5 mg 5 mg PO DAILY 03/08/19 (*)] traMADol [Ultram 50 mg (*)] 50 mg PO BID PRN 03/08/19 Lab and Imaging 03/18/19 04:45 03/19/19 04:45 WBC 6.90 10^3/uL (3.80-9.50) 03/18/19 04:45 RBC 3.04 10^6/uL (4.18-5.33) L 03/18/19 04:45 Hgb 9.1 g/dL (12.6-16.3) L 03/18/19 04:45 Hct 29.6 % (38.0-47.0) L 03/18/19 04:45 MCV 97.4 fL (81.5-99.8) 03/18/19 04:45 MCH 29.9 pg (27.9-34.1) 03/18/19 04:45 MCHC 30.7 g/dL (32.4-36.7) L 03/18/19 04:45 RDW 13.9 % (11.5-15.2) 03/18/19 04:45 Plt Count 159 10^3/uL (150-400) 03/18/19 04:45 MPV 10.7 fL (8.7-11.7) 03/18/19 04:45 Neut % (Auto) 65.0 % (39.3-74.2) 03/18/19 04:45 Lymph % (Auto) 22.8 % (15.0-45.0) 03/18/19 04:45 [place] % (Auto) 8.7 % (4.5-13.0) 03/18/19 04:45 Eos % (Auto) 2.5 % (0.6-7.6) 03/18/19 04:45 Baso % (Auto) 0.6 % (0.3-1.7) 03/18/19 04:45 Nucleat RBC Rel Count 0.0 % (0.0-0.2) 03/18/19 04:45 Absolute Neuts (auto) 4.49 10^3/uL (1.70-6.50) 03/18/19 04:45 Absolute Lymphs (auto) 1.57 10^3/uL (1.00-3.00) 03/18/19 04:45 Absolute Monos (auto) 0.60 10^3/uL (0.30-0.80) 03/18/19 04:45 Absolute Eos (auto) 0.17 10^3/uL (0.03-0.40) 03/18/19 04:45 Absolute Basos (auto) 0.04 10^3/uL (0.02-0.10) 03/18/19 04:45 Absolute Nucleated RBC 0.00 10^3/uL (0-0.01) 03/18/19 04:45 Immature Gran % 0.4 % (0.0-1.1) 03/18/19 04:45 Seg Neutrophils % 66.0 % 03/08/19 17:47 Band Neutrophils % 1.0 % 03/08/19 17:47 Lymphocytes % 29.0 % 03/08/19 17:47 Monocytes % 4.0 % 03/08/19 17:47 Eosinophils % 0.0 % 03/08/19 17:47 Basophils % 0.0 % 03/08/19 17:47 Metamyelocytes % 0.0 % 03/08/19 17:47 Myelocytes % 0.0 % 03/08/19 17:47 Promyelocytes % 0.0 % 03/08/19 17:47 Blast Cells % 0.0 % 03/08/19 17:47 Immature Gran # 0.03 10^3/uL (0.00-0.10) 03/18/19 04:45 Absolute Seg Neuts 5.23 10^3/uL (1.70-6.50) 03/08/19 17:47 Absolute Band Neuts 0.08 10^3/uL (0.00-0.70) 03/08/19 17:47 Absolute Lymphocytes 2.30 10^3/uL (1.00-3.00) 03/08/19 17:47 Absolute Monocytes 0.32 10^3/uL (0.30-0.80) 03/08/19 17:47 Absolute Eosinophils 0.00 10^3/uL (0.03-0.40) L 03/08/19 17:47 Absolute Basophils 0.00 10^3/uL (0.02-0.10) L 03/08/19 17:47 Absolute Metamyelocyte 0.00 10^3/mL (0.00-0.00) 03/08/19 17:47 Absolute Myelocytes 0.00 10^3/mL (0.00-0.00) 03/08/19 17:47 Absolute Promyelocytes 0.00 10^3/uL (0.00-0.00) 03/08/19 17:47 Absolute Plasma Cells 0.00 10^3/uL (0.00-0.00) 03/08/19 17:47 RBC/WBC/PLT Morphology NORMAL (NORMAL) 03/08/19 17:47 Absolute Blast Cells 0.00 10^3/uL (0.00-0.00) 03/08/19 17:47 Plasma Cells % 0.0 % 03/08/19 17:47 Smudge Cells 1+ H 03/08/19 17:47 Platelet Estimate ADEQUATE (ADEQ) 03/08/19 17:47 Sodium 138 mEq/L (135-145) 03/18/19 04:45 Potassium 4.8 mEq/L (3.5-5.2) 03/18/19 04:45 Chloride 108 mEq/L (97-110) 03/18/19 04:45 Carbon Dioxide 22 mEq/l (22-31) 03/18/19 04:45 Anion Gap 8 mEq/L (6-14) 03/18/19 04:45 BUN 72 mg/dL (7-23) H 03/18/19 04:45 Creatinine 2.7 mg/dL (0.6-1.0) H 03/19/19 04:45 Estimated GFR 17 03/19/19 04:45 Glucose 84 mg/dL (70-100) 03/18/19 04:45 POC Glucose 196 mg/dL (70-100) H 03/19/19 11:37 Hemoglobin A1c 7.8 % (4.0-6.0) H 03/08/19 20:22 Estim Average Glucose 177 mg/dL (68-126) H 03/08/19 20:22 Calcium 8.2 mg/dL (8.5-10.4) L 03/18/19 04:45 Magnesium 2.2 mg/dL (1.6-2.3) 03/12/19 03:15 Troponin I 0.161 ng/mL (0.000-0.034) H 03/19/19 09:52 NT-Pro-B Natriuret Pep 40129 pg/mL (0-450) H 03/18/19 04:45 Triglycerides 70 mg/dL (35-135) 03/09/19 03:14 Cholesterol 105 mg/dL (140-220) L 03/09/19 03:14 Cholesterol Risk Factr 0.5 (0.2-1.0) 03/09/19 03:14 LDL Cholesterol, Calc 55 mg/dL (80-100) L 03/09/19 03:14 LDL Risk Factor 0.5 (0.2-1.0) 03/09/19 03:14 VLDL Cholesterol 14 mg/dL (8-25) 03/09/19 03:14 Non-HDL Cholesterol 69 mg/dL (90-129) L 03/09/19 03:14 HDL Cholesterol 36 mg/dL (40-85) L 03/09/19 03:14 LDL/HDL Ratio 1.53 RATIO (1.00-3.22) 03/09/19 03:14 Cholesterol/HDL Ratio 2.92 RATIO (1.00-4.44) 03/09/19 03:14 TSH 1.420 uIU/mL (0.465-4.680) 03/08/19 17:55 Urine Color YELLOW 03/13/19 07:46 Urine Appearance MODERATELY TURBID 03/13/19 07:46 Urine pH 5.0 (5.0-7.5) 03/13/19 07:46 Ur Specific Shell 1.012 (1.002-1.030) 03/13/19 07:46 Urine Protein 1+ (NEGATIVE) H 03/13/19 07:46 Urine Ketones NEGATIVE (NEGATIVE) 03/13/19 07:46 Urine Blood NEGATIVE (NEGATIVE) 03/13/19 07:46 Urine Nitrate NEGATIVE (NEGATIVE) 03/13/19 07:46 Urine Bilirubin NEGATIVE (NEGATIVE) 03/13/19 07:46 Urine Urobilinogen NEGATIVE EU (0.2-1.0) 03/13/19 07:46 Ur Leukocyte Esterase 3+ (NEGATIVE) H 03/13/19 07:46 Urine RBC 1-3 /hpf (0-3) 03/13/19 07:46 Urine WBC 50-182 /hpf (0-3) H 03/13/19 07:46 Ur Epithelial Cells TRACE /lpf (NONE-1+) 03/13/19 07:46 Urine Bacteria 3+ /hpf (NONE SEEN) H 03/13/19 07:46 Hyaline Casts 1-5 /lpf (0-1) 03/11/19 13:21 Urine Mucus TRACE /lpf (NONE-1+) 03/13/19 07:46 Ur Culture Indicated? INDICATED (NI) H 03/13/19 07:46 Ur Random Creatinine 99.6 mg/dL 03/11/19 13:21 Ur Random Microalbumin 19.8 mg/dL (0.0-1.6) H 03/11/19 13:21 Ur Random Sodium 25 mEq/L (30-90) L 03/11/19 13:21 Ur Albumin/Creat Ratio 198.8 mg/g cre 03/11/19 13:21 Urine Glucose NEGATIVE (NEGATIVE) 03/13/19 07:46
--- NOTE | 2019-03-19 15:42 | HOSPPROG ---
Hospitalist Progress Note Assessment/Plan: * Acute respiratory failure due to pulmonary edema -IV lasix * Bilateral critical carotid stenosis s/p Right CEA -staged procedure - follow-up with Dr. Moses to schedule left -ASA/Plavix * Acute on chronic renal failure - due to contrast nephropathy, hemodynamic instability -d/w Dr. Escamilla - nephrology to consult * Acute on chronic diastolic CHF -continue lasix -d/w Dr. Delgadillo - cardiology to consult * CAD/stents -cath 2018 - patents stents, 100% RCA occlusion with good collaterals * UTI - Ecoli -IV ceftriaxone * Bradycardia/pause due to beta-ion -metoprolol dose reduced * DM II -Lantus * Transient episodes of unresponsiveness - happened twice today -recheck head CT - check ABG -probably due to metabolic encephalopathy CC time - 1 hour Subjective: Very SOB overnight, given IV lasix, no CP. Still very SOB with increase WOB this am. troponin positive, transferred to PCU. On arrival to PCU she was cyanotic, on 15L O2 and unresponsive, I was asked to attend urgently to bedside. Patient subsequenlty improved, woke up, now on 5L awake and conversent Objective: Vital Signs Temp Pulse Resp BP Pulse Ox 35.7 C L 74 18 131/46 H 92 03/19/19 12:08 03/19/19 14:22 03/19/19 14:22 03/19/19 14:22 03/19/19 14:22 Laboratory Results 03/18/19 04:45 03/19/19 04:45 03/18/19 03/19/19 03/20/19 05:59 05:59 05:59 Intake Total 640 Output Total 600 900 Balance -600 -260 - Physical Exam Constitutional: uncomfortable Cardiovascular: regular rate and rhythym, edema (2+), No systolic murmur Respiratory: inspiratory crackles (at bases), respiratory distress, No expiratory wheeze, No rhonchi Gastrointestinal: normoactive bowel sounds, soft, non-tender abdomen, no palpable masses Skin: no rashes or abrasions, no fluctuance, no induration Neurologic: AAOx3, sensation intact bilaterally Psychiatric: interacting appropriately, not anxious, not encephalopathic, thought process linear ICD10 Worksheet Patient Problems: Problems Problem Status Onset Carotid stenosis, bilateral Acute Cervical stenosis of spinal canal Acute Arthrodesis status Acute Nausea & vomiting Acute Ataxia Acute
[2019-03-19] MEDS ORDERED: FUROSEMIDE 100 MG/10 ML VIAL IVP ONE (17:15)
[2019-03-19] MEDS: PATCH REMOVAL 1 EA PATCH TD SCH (20:55)
[2019-03-19] MEDS: ATORVASTATIN CALCIUM 40 MG TAB PO SCH (20:55)
[2019-03-19] MEDS: INSULIN GLARGINE 100 UNITS/ML UNIT SC SCH (21:18)
[2019-03-19] MEDS: ACETAMINOPHEN 325 MG TAB PO PRN (21:23)
--- NOTE | 2019-03-20 00:09 | HOSPPROG ---
Hospitalist Progress Note Assessment/Plan: Hospitalist night float Notified by RN patient with increasing oxygen dependence. She is currently on OxyMask with increased from 10 LPM to 15 LPM. Patient without any acute respiratory distress or changes. She remains quite fatigued and does not awaken to interact but does mode open eyes permanent falls back asleep. Patient's family is at bedside. Reviewed patient's chart she received a dose of Lasix before shift change. She does not have a Vazquez catheter in place and she had a bowel movement with avoid so unclear exactly how much urine output she has had since that time. Her creatinine has increased to 3.0 today. Nephrology was recently at bedside been consulted. No need for emergent dialysis at this time. Will hold off on additional Lasix dosing for now. Patient also taking small shallow breaths. When he is more alert encourage incentive spirometry if the Transition patient to a non-rebreather. She is saturating much better at 96% and titrating down her O2 requirements. Discussed with patient's family member regarding use of BiPAP and if this would be consistent with her wishes that she is listed as DNR who reports that patient would likely be agreeable to this form of noninvasive respiratory support if necessary. VBG was completed previously indicating a pCO2 of 55. She is not in acute distress at this point family agrees. RN notified of patient with any worsen respiratory distress will order BiPAP. Objective: Vital Signs Temp Pulse Resp BP Pulse Ox 37.1 C 90 16 115/70 95 03/19/19 19:54 03/20/19 00:00 03/20/19 00:00 03/20/19 00:00 03/20/19 00:00 Laboratory Results 03/18/19 04:45 03/19/19 17:20 03/18/19 03/19/19 03/20/19 05:59 05:59 05:59 Intake Total 640 Output Total 600 900 Balance -600 -260 ICD10 Worksheet Patient Problems: Problems Problem Status Onset Ataxia Acute Carotid stenosis, bilateral Acute Nausea & vomiting Acute Arthrodesis status Acute Cervical stenosis of spinal canal Acute
[2019-03-20 03:59] LABS: PLATELET COUNT 174 10^3/uL (150-400)
[2019-03-20] MEDS: HEPARIN 5,000 UNIT/0.5 ML INJ SC SCH ×3 (06:24→22:25)
--- NOTE | 2019-03-20 08:47 | HOSPPROG ---
Hospitalist Progress Note Assessment/Plan: 88yo F with CAD, DM2 presented with dizziness found to have critical ICA stenoses s/p R CEA. Course complicated by decompensated dCHF with worsening renal function and respiratory failure. * Acute respiratory failure due to pulmonary edema: better today -IV lasix, consider metalazone * Acute on chronic diastolic CHF and valvular heart disease (mod-severe MR and TR) -continue lasix -afterload reduction with hydralazine (unable to use DORIS/ARB) -cardiology consulted * Acute on chronic renal failure: worsening; due to contrast nephropathy, hemodynamic instability -nephrology following -pt not interested in [employer] * Bilateral critical carotid stenosis s/p Right CEA -staged procedure - follow-up with Dr. Moses to schedule left -ASA/Plavix * CAD, elevated troponin: troponin rising (0.14->0.19) -cath 2018 - patents stents, 100% RCA occlusion with good collaterals -cont ASA, plavix, BB, statin -repeat trop * Ecoli UTI -IV ceftriaxone, day 4 * Anemia: h/h dropped -no e/o bleeding, monitor for now * Bradycardia/pause due to beta-ion -metoprolol dose reduced * DM II -Lantus * Transient episodes of unresponsiveness: resolved, likely 2/2 hypoxia -repeat head CT ok Code: DNR/DNI Dispo: remain in SDU. she is clear that she does not want invasive/aggressive therapies such as intubation, CPR, dialysis, central line. she would be ok with NIPPV as temporizing measure Subjective: Moved to ICU for respiratory failure yesterday. Cross cover called for increasing O2 needs, given additional lasix. Improved after being placed on non-rebreather. Doing much better now. No difficulty breathing. No chest pain. Objective: Vital Signs Temp Pulse Resp BP Pulse Ox 36.5 C 76 18 148/52 H 94 03/20/19 07:42 03/20/19 07:42 03/20/19 07:42 03/20/19 07:42 03/20/19 07:42 Laboratory Results 03/20/19 03:50 03/20/19 03:50 03/19/19 03/20/19 03/21/19 05:59 05:59 05:59 Intake Total 640 300 Output Total 900 250 Balance -260 50 - Physical Exam Constitutional: no apparent distress Eyes: PERRL, anicteric sclera, EOMI Ears, Nose, Mouth, Throat: dry mucous membranes Cardiovascular: tachycardia, edema (1+ BLE) Respiratory: reduced air movement (bases), inspiratory crackles, No expiratory wheeze Gastrointestinal: normoactive bowel sounds, soft, non-tender abdomen, no palpable masses Genitourinary: no bladder fullness, no bladder tenderness, no renal bruits Skin: no rashes or abrasions, no fluctuance, no induration Musculoskeletal: full muscle strength, no muscle tenderness, normal joint ROM Neurologic: AAOx3 Psychiatric: interacting appropriately ICD10 Worksheet Patient Problems: Problems Problem Status Onset Ataxia Acute Carotid stenosis, bilateral Acute Nausea & vomiting Acute Arthrodesis status Acute Cervical stenosis of spinal canal Acute
[2019-03-20] MEDS: FUROSEMIDE 40 MG/4 ML VIAL IVP SCH ×3 (09:03→16:58)
[2019-03-20] MEDS: ASPIRIN 81 MG CHEWABLE TAB PO SCH (09:03)
[2019-03-20] MEDS: METOPROLOL TARTRATE 50 MG TAB PO SCH ×2 (09:03→20:34)
[2019-03-20] MEDS: amLODIPine BESYLATE 5 MG TAB PO SCH (09:05)
[2019-03-20] MEDS: CHOLECALCIFEROL VIT D3 2,000 UNITS TAB/CAP PO SCH (09:05)
[2019-03-20] MEDS: CLOPIDOGREL BISULFATE 75 MG TAB PO SCH (09:05)
[2019-03-20] MEDS: GABAPENTIN 100 MG CAP PO SCH ×2 (09:05→20:34)
[2019-03-20] MEDS: PRESERVISION AREDS2 FORMULA EYE VIT 1 EACH PO SCH ×2 (09:05→20:33)
[2019-03-20] MEDS: ISOSORBIDE MONONITRATE 30 MG TAB.SR PO SCH (09:05)
[2019-03-20] MEDS: SENNOSIDES/DOCUSATE SODIUM TAB PO SCH ×2 (09:06→20:33)
[2019-03-20] MEDS: INSULIN LISPRO 100 UNIT/ML SC SCH ×3 (09:06→18:20)
[2019-03-20] MEDS: LIDOCAINE 4%/MENTHOL 1% PATCH TD SCH (09:06)
--- NOTE | 2019-03-20 09:37 | SOAPPROG ---
SOAP Progress Note Assessment/Plan: Assessment: CKD 4, baseline creat between 2.2 and 2.4 CHRIS, creat continues to rise, appears to oliguric despite diuretics, patient does NOTwant dialysis Acute SOB yesterday, CXR mod CHF and bilateral pleural effusions BLE dopplers negative for DVT Renal ultrasound: normal sized kidneys, no hydro, increased cortical echogenicity feels a little better today Bialteral carotid stenosis, R CEA done this hospital stay, seems to be healing nicely Volume overload E. coli UTI, on Rocephin Plan: No HD per patient wishes continue diuresis, consider metolazone continue antibiotics supportive care All questions answered 03/20/19 09:30 Subjective: SOB persists, maybe a little better today waiting for her breakfast, appetite is OK no cp nausea or vomiting got up to the commode last night, not out of bed yet today spirits good, lots of smiles this morning, was very pleased to see a visitor today Objective: Vital Signs Temp Pulse Resp BP Pulse Ox 36.5 C 76 18 158/67 H 94 03/20/19 07:42 03/20/19 09:03 03/20/19 07:42 03/20/19 09:05 03/20/19 07:42 Laboratory Results 03/20/19 03:50 03/20/19 03:50 03/19/19 03/20/19 03/21/19 05:59 05:59 05:59 Intake Total 640 300 Output Total 900 250 Balance -260 50 Physical Exam - Physical Exam General Appearance: alert Neck: other (healing CEA incision on right) Respiratory: rales, rhonchi, wheezing Cardiac/Chest: regular rate, rhythm, edema, systolic murmur, No friction rub Abdomen: normal bowel sounds, non-tender, soft Extremities: swelling Neuro/Psych: alert, normal mood/affect, oriented x 3 ICD10 Worksheet Patient Problems: Problems Problem Status Onset Ataxia Acute Carotid stenosis, bilateral Acute Nausea & vomiting Acute Arthrodesis status Acute Cervical stenosis of spinal canal Acute
--- NOTE | 2019-03-20 10:10 | SOAPPROG ---
KELLY Progress Note Assessment/Plan: Assessment: SEEN TODAY FOR BILAT CAROTID STENOSIS WITH CEREBRAL ISCHEMIC SYMPTOMS RISKS AND OPTIONS FULLY DISCUSSED AND TATY PROCEED WITH RIGHT CEA IN AM AND LEFT CEA IN2-3 WEEKS NEURO EXAM SYMMETRIC AND PHYSIOLOGIC CHEST CLEAR COR RR NECK BILAT BRUITS Plan:RT CEA IN AM 03/13/19 16:01 03/15/19 10:44 DOING WELL/VITAL SIGNS STABLE/WOUND OKAY/NEURO EXAM INTACT/AFEBRILE/CHEST CLEAR/ COR REGULAR RHYTHM TRANSFER TO TELE 03/17/19 08:55 AFEBRILE/VITAL SIGNS STABLE/NEURO INTACT/EATING OKAY WANTS TO GO HOME TODAY CHEST CLEAR AND SYMMETRIC/COR REGULAR RHYTHM/ABDOMEN SOFT PLAN: HOME TODAY FOLLOW-UP IN THE OFFICE NEXT WEEK FOR AN EVENTUAL LEFT CEA 03/18/19 13:29 WOUND OK/ NEURO INTACT/ HOME PER IM 03/20/19 10:10 CAROTID WOUND OKAY/NEURO EXAM OKAY BUT PATIENT IN THE ICU FOR CONGESTIVE HEART FAILURE AND SOME AZOTEMIA SEEMS IMPROVING WITH DIURETICS AND FLUID RESTRICTION/WILL FOLLOW Objective: Vital Signs Temp Pulse Resp BP Pulse Ox 36.5 C 76 18 158/67 H 94 03/20/19 07:42 03/20/19 09:03 03/20/19 07:42 03/20/19 09:05 03/20/19 07:42 Laboratory Results 03/20/19 03:50 03/20/19 03:50 03/19/19 03/20/19 03/21/19 05:59 05:59 05:59 Intake Total 640 300 Output Total 900 250 Balance -260 50 ICD10 Worksheet Patient Problems: Problems Problem Status Onset Ataxia Acute Carotid stenosis, bilateral Acute Nausea & vomiting Acute Arthrodesis status Acute Cervical stenosis of spinal canal Acute
--- NOTE | 2019-03-20 13:14 | CPEKG ---
Test Reason : OPEN Blood Pressure : / mmHG Vent. Rate : 102 BPM Atrial Rate : 037 BPM P-R Int : 169 ms QRS Dur : 103 ms QT Int : 353 ms P-R-T Axes : 064 -28 209 degrees QTc Int : 460 ms Sinus tachycardia Ventricular bigeminy Borderline left axis deviation Confirmed by Zack Chaparro ([id number]) on 03/20/2019 1:14:44 PM Referred By: Jermaine Moses Confirmed By:Zack Chaparro
[2019-03-20] MEDS ORDERED: FUROSEMIDE 100 MG/10 ML VIAL IVP ONE (15:58)
--- NOTE | 2019-03-20 17:15 | GCON ---
[f rep st] CONSULTATION DATE OF CONSULTATION: 03/20/2019 REASON FOR CONSULTATION: Acute hypoxemic respiratory failure, congestive heart failure. HISTORY: The patient is a very pleasant 88-year-old who was transferred to the intensive care unit. early this morning with increasing oxygen requirements and decreased mental status. She was placed on a non-rebreather and transferred to SDU for increased ventilatory support, BiPAP if necessary, and further evaluation. She is DNR per her expressed wishes. She was initially admitted to the hospital on 03/08, for abnormal mental status. She was ataxic with generalized weakness. MRI of the brain was unremarkable. Carotid revealed significant obstruction on the right side. She was subsequently taken to the operating room for carotid endarterectomy. Thi s was done on 03/15, without complication. Her course has been complicated by congestive heart failure secondary to significant diastolic dysfun ction. She has acute on chronic renal failure. She has been poorly responsive to diuresis. Renal h as started to see the patient. She has an E coli urinary tract infection and has been on ceftriaxone . She also has a history of coronary artery disease, previous stenting, bradycardia, and type 2 diab etes. She has had episodes of decreased responsiveness, the etiology is somewhat unclear. In the ICU, she has done well. She is awake and alert, responsive, on decreasing oxygen. She denies shortness of breath or pain. PAST MEDICAL HISTORY: As outlined above in the HPI. She has acute on chronic renal failure, diastol ic heart failure, coronary artery disease, bradycardia, type 2 diabetes, systemic hypertension, and h yperlipidemia. ALLERGIES: No known drug allergies. SOCIAL HISTORY: The patient is . She has a very supportive family. Alcohol is negative. Jay guardado is a never smoker. FAMILY HISTORY: Noncontributory. REVIEW OF SYSTEMS: A 10-point review of systems is negative except as noted in the HPI. PHYSICAL EXAMINATION: GENERAL: Reveals a very pleasant woman who is sitting up in a chair. Family is present. She is talking appropriately with them. She is in good spirits. She denies shortness o f breath, pain, or discomfort. VITAL SIGNS: Blood pressure is 143/50, heart rate 78 with sinus rhyt hm on the monitor, currently on 5 L nasal cannula, saturations are 92%. HEENT: Unremarkable for lym phadenopathy or thyromegaly. Mucous membranes are moist. There is no obvious jugular venous distent ion. CHEST: Reveals decreased breath sounds bilaterally. Breath sounds are diminished, especially at the bases. Bibasilar rales are present with some possible dullness. Borderline consolidative adonay nges were present. HEART: Regular in rate and rhythm. Heart tones are distant. A systolic murmur is present. A gallop cannot be excluded. ABDOMEN: Overweight, soft, nontender. Bowel sounds are p resent. EXTREMITIES: Remarkable for 1+ pitting edema. NEUROLOGIC: Nonfocal. Mentation is excelle nt. DATABASE: Chest x-ray yesterday, shows bibasilar atelectasis and associated effusions. Cardiac silh ouette is large consistent with congestive heart failure. White blood cell count 6300, hematocrit 26.8; down from 43 on admission, platelets are 174,000. [facility] blood gas today showed a pH of 7.35, pCO2 of 35, and PO2 of 45 with a saturation of 79% on high- flow oxygen. Sodium is 138, potassium 5.2, creatinine 3.3, with a BUN of 86, last glucose was 132, p hosphorus is elevated at 6.0, troponin 0.194, albumin is 2.6. ASSESSMENT: 1. Acute respiratory failure, this is secondary to congestive heart failure. Other problems such as pneumonia, aspiration, etc., do not appear to be present. Other medical problems may be affecting h er respiratory status somewhat as well, including periods of altered mental status with the possibili ty of decreased respiratory drive at these times. Currently, she is stable and doing well on decreas ing amounts of supplemental oxygen. 2. Congestive heart failure. She does have acute on chronic congestive heart failure secondary in l arge part to diastolic dysfunction. BUN and creatinine are significantly elevated, making diuresis d ifficult. She would not want hemodialysis even if needed secondary to her advanced directives. 3. Acute on chronic renal failure. BUN has risen to 86, creatinine 3.3. She has been poorly respon sive to 40 mg twice a day of intravenous Lasix. A higher dose can be re-tried; however, this may wor sen her renal function. 4. Carotid stenosis, status post right carotid endarterectomy. Doing well. Left side needs to be d one at some point. 5. History of coronary artery disease as outlined above. She also has significant valvular heart di sease with severe mitral regurgitation, as well as tricuspid regurgitation. 6. Escherichia coli urinary tract infection, on ceftriaxone, doing well. 7. Anemia. Hematocrit currently stable without evidence of significant ongoing bleeding. Hemoglobi n and hematocrit will be followed. 8. Type 2 diabetes. She is on sliding scale insulin. 9. Advanced directives. She is do not resuscitate. PLAN AND RECOMMENDATIONS: She will be kept in the intensive care unit as an SDU patient. She is jessica listic about her age and care and does not want aggressive or invasive therapies. If needed, she wou ld be agreeable to BiPAP ventilatory support. Lasix 80 mg will be given 1 dose this afternoon, and u rine output as well as renal function followed. Chest x-ray will be followed. Laboratory will be re peated in the a.m. Oxygen will be given as needed to keep saturations 88% or above. Further plans a nd recommendations will be made based on her progress over the next 12 to 24 hours. /[id number]/MODL
[2019-03-20] MEDS: ATORVASTATIN CALCIUM 40 MG TAB PO SCH (20:33)
[2019-03-20] MEDS: ACETAMINOPHEN 325 MG TAB PO PRN (20:35)
[2019-03-20] MEDS: PATCH REMOVAL 1 EA PATCH TD SCH (20:35)
[2019-03-20] MEDS: INSULIN GLARGINE 100 UNITS/ML UNIT SC SCH (20:35)
--- NOTE | 2019-03-21 03:32 | GCON ---
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 The patient presented to the hospital with abdominal pain, nausea and vomiting and had recurrent near syncope resulting in evaluation of her head and neck anatomy demonstrating critical s evere if not critical stenosis of the right and left internal carotid as well as compromise of her ve rtebral circulation posteriorly. She underwent a carotid endarterectomy on the right side and has alvarado d modest elevations from her baseline creatinine. She has been convalescing, but not getting better very quickly. Last evening she had an acute decompensation with pulmonary edema resulting in desatur ation requiring high levels of oxygen and a transfer to the ICU. I was asked to see the patient in c onsultation. She does have a minimally elevated troponin. She underwent cardiac catheterization in 2018 demonstrating nonobstructive coronary disease on the left side with a total occlusion of the rig ht which was well collateralized from the left side. Her EKG is not indicative of an acute injury or ischemic process. Her mildly elevated troponins are likely related to demand ischemia, her known hi story of a total occlusion of the right coronary, pulmonary edema, as well as her creatinine elevatio n. I think it would be in the patient's best interest to receive gentle diuresis. Appreciate the he lp of the Nephrology Service in her evaluation and management. It is likely that she would benefit f rom hydralazine and nitrates to control her blood pressure. Obviously, we would like to avoid hypote nsion as she does still have significant carotid stenosis on the left side. She does have bigeminal PVCs, which may be decreasing her ability to have an adequate cardiac output as most of them seem to be non perfusing on exam. Thank you for the interesting consultation. We will follow with you. The patient has made it clear that she does not want to receive dialysis and does not want to be placed on life support in the for m of a ventilator at present and I think we will be required to honor those wishes unless she changes her mind about those issues in the near future. At her age, her prognosis is obviously guarded, but I think a program of hydralazine and nitrates to control her blood pressure may be beneficial in impr oving her cardiac output along with gentle diuresis to help resolve her pulmonary edema as is planned currently. /[id number]/MODL
[2019-03-21] MEDS: HEPARIN 5,000 UNIT/0.5 ML INJ SC SCH ×3 (05:28→22:33)
[2019-03-21] MEDS: INSULIN LISPRO 100 UNIT/ML SC SCH ×3 (09:08→18:14)
[2019-03-21] MEDS: LIDOCAINE 4%/MENTHOL 1% PATCH TD SCH ×2 (09:19→14:02)
[2019-03-21] MEDS: FUROSEMIDE 40 MG/4 ML VIAL IVP SCH (09:19)
[2019-03-21] MEDS: METOPROLOL TARTRATE 50 MG TAB PO SCH ×2 (09:20→20:25)
[2019-03-21] MEDS: CHOLECALCIFEROL VIT D3 2,000 UNITS TAB/CAP PO SCH (09:20)
[2019-03-21] MEDS: PRESERVISION AREDS2 FORMULA EYE VIT 1 EACH PO SCH ×2 (09:21→20:25)
[2019-03-21] MEDS: GABAPENTIN 100 MG CAP PO SCH ×2 (09:21→20:25)
[2019-03-21] MEDS: ISOSORBIDE MONONITRATE 30 MG TAB.SR PO SCH (09:21)
[2019-03-21] MEDS: ASPIRIN 81 MG CHEWABLE TAB PO SCH (09:22)
[2019-03-21] MEDS: amLODIPine BESYLATE 5 MG TAB PO SCH (09:22)
[2019-03-21] MEDS: CLOPIDOGREL BISULFATE 75 MG TAB PO SCH (09:22)
[2019-03-21] MEDS: SENNOSIDES/DOCUSATE SODIUM TAB PO SCH ×2 (09:23→20:26)
--- NOTE | 2019-03-21 09:44 | SOAPPROG ---
SOAP Progress Note Assessment/Plan: Assessment: CKD 4, baseline creat between 2.2 and 2.4 CHRIS, creat continues to rise, appears to oliguric despite diuretics, patient does NOT want dialysis, reviewed her wishes again today Acute SOB 03/19, CXR mod CHF and bilateral pleural effusions BLE dopplers negative for DVT Renal ultrasound: normal sized kidneys, no hydro, increased cortical echogenicity feels a little better yesterday and today Bialteral carotid stenosis, R CEA done this hospital stay, seems to be healing nicely Volume overload E. coli UTI, on Rocephin Plan: No HD per patient wishes continue diuresis, UOP better the past 24 hours continue antibiotics supportive care All questions answered 03/20/19 09:30 03/21/19 09:41 Objective: Vital Signs Temp Pulse Resp BP Pulse Ox 37.1 C 78 18 139/75 H 93 03/21/19 08:00 03/21/19 09:20 03/21/19 08:00 03/21/19 09:22 03/21/19 08:00 Laboratory Results 03/21/19 04:55 03/21/19 04:55 03/20/19 03/21/19 03/22/19 05:59 05:59 05:59 Intake Total 300 865 Output Total 250 750 Balance 50 115 Physical Exam - Physical Exam General Appearance: alert, other (pleasant) Neck: other (healing R CEA incision) Respiratory: rales, No rhonchi, No wheezing Cardiac/Chest: edema, systolic murmur, irregularly irregular Abdomen: normal bowel sounds, non-tender, soft Skin: warm/dry Extremities: swelling Neuro/Psych: alert, normal mood/affect, oriented x 3 ICD10 Worksheet Patient Problems: Problems Problem Status Onset Ataxia Acute Carotid stenosis, bilateral Acute Nausea & vomiting Acute Arthrodesis status Acute Cervical stenosis of spinal canal Acute
[2019-03-21] MEDS ORDERED: METOPROLOL TARTRATE 5 MG/5 ML INJ IVP ONE (12:30)
--- NOTE | 2019-03-21 12:41 | ASMTCMCOM ---
CM Note CM Note Notes: Spoke with patient's daughter, Carmel ([phone]) who called to request we send a new referral to [facility]. She states this location will be more convenient for family members. A referral has been sent. In conversation with Dr. Cardona, it was confirmed it will be awhile before patient is ready for discharge. CM following. Date Signed: 03/21/2019 12:40 PM Electronically Signed By:Earnestine Arce LCSW
[2019-03-21] MEDS ORDERED: METOPROLOL TARTRATE 5 MG/5 ML INJ IVP PRN (13:00)
--- NOTE | 2019-03-21 14:06 | HOSPPROG ---
Hospitalist Progress Note Assessment/Plan: 88yo F with CAD, DM2 presented with dizziness found to have critical ICA stenoses s/p R CEA. Course complicated by decompensated dCHF with worsening renal function and respiratory failure. * Acute respiratory failure due to pulmonary edema: still on 6L -no response to 40mg IV lasix -trial 80mg IV lasix this PM * Acute on chronic diastolic CHF and valvular heart disease (mod-severe MR and TR): cards consulted -continue lasix -afterload reduction with hydralazine and nitrates (unable to use DORIS/ARB) * Acute on chronic renal failure: worsening; due to contrast nephropathy, hemodynamic instability -nephrology following -pt not interested in [facility]ING [facility]. family wanting her to re-think this decision. had lengthy discussion with pt and daughter today re: logistics of dialysis. patient still consistent with her decision that she would not want HD. I encouraged patient to discuss her decision with her family. * Bilateral critical carotid stenosis s/p Right CEA -staged procedure - follow-up with Dr. Moses to schedule left -ASA/Plavix * CAD, elevated troponin: troponin now down-trending -cath 2018 - patents stents, 100% RCA occlusion with good collaterals -cont ASA, plavix, BB, statin * Ecoli UTI -IV ceftriaxone through 03/23 * Anemia: h/h stable -no e/o bleeding, monitor for now * Bradycardia/pause due to beta-ion -metoprolol dose reduced * DM II -Lantus * Transient episodes of unresponsiveness: resolved, likely 2/2 hypoxia -repeat head CT ok Code: DNR/DNI Dispo: remain in SDU. she is clear that she does not want invasive/aggressive therapies such as intubation, CPR, dialysis, central line. she would be ok with NIPPV as temporizing measure Subjective: Feeling a bit more lethargic today. Breathing ok. Hardly urinated at all after 40mg iv lasix this AM. Objective: Vital Signs Temp Pulse Resp BP Pulse Ox 36.9 C 88 17 118/48 L 96 03/21/19 12:00 03/21/19 13:07 03/21/19 13:04 03/21/19 13:07 03/21/19 13:04 Laboratory Results 03/21/19 04:55 03/21/19 04:55 03/20/19 03/21/19 03/22/19 05:59 05:59 05:59 Intake Total 300 865 Output Total 250 750 50 Balance 50 115 -50 - Physical Exam Constitutional: no apparent distress Eyes: PERRL Ears, Nose, Mouth, Throat: moist mucous membranes, hearing normal, ears appear normal, no oral mucosal ulcers Cardiovascular: regular rate and rhythym, other (frequent ectopy) Respiratory: reduced air movement Gastrointestinal: normoactive bowel sounds, soft, non-tender abdomen, no palpable masses Genitourinary: no bladder fullness, no bladder tenderness, no renal bruits Skin: no rashes or abrasions, no fluctuance, no induration Neurologic: AAOx3 Psychiatric: interacting appropriately ICD10 Worksheet Patient Problems: Problems Problem Status Onset Ataxia Acute Carotid stenosis, bilateral Acute Nausea & vomiting Acute Arthrodesis status Acute Cervical stenosis of spinal canal Acute
[2019-03-21] MEDS ORDERED: FUROSEMIDE 100 MG/10 ML VIAL IVP ONE (14:07)
[2019-03-21] MEDS: ATORVASTATIN CALCIUM 40 MG TAB PO SCH (20:25)
[2019-03-21] MEDS: PATCH REMOVAL 1 EA PATCH TD SCH (20:25)
[2019-03-21] MEDS: INSULIN GLARGINE 100 UNITS/ML UNIT SC SCH (20:27)
[2019-03-22] MEDS: HEPARIN 5,000 UNIT/0.5 ML INJ SC SCH ×3 (06:05→21:05)
[2019-03-22] MEDS: INSULIN LISPRO 100 UNIT/ML SC SCH ×3 (08:04→17:14)
[2019-03-22] MEDS: METOPROLOL TARTRATE 50 MG TAB PO SCH ×2 (09:09→21:02)
[2019-03-22] MEDS: GABAPENTIN 100 MG CAP PO SCH ×2 (09:09→21:01)
[2019-03-22] MEDS: PRESERVISION AREDS2 FORMULA EYE VIT 1 EACH PO SCH ×2 (09:09→21:02)
[2019-03-22] MEDS: SENNOSIDES/DOCUSATE SODIUM TAB PO SCH ×2 (09:10→21:02)
[2019-03-22] MEDS: LIDOCAINE 4%/MENTHOL 1% PATCH TD SCH (09:10)
[2019-03-22] MEDS: ASPIRIN 81 MG CHEWABLE TAB PO SCH (09:10)
[2019-03-22] MEDS: CHOLECALCIFEROL VIT D3 2,000 UNITS TAB/CAP PO SCH (09:10)
[2019-03-22] MEDS: CLOPIDOGREL BISULFATE 75 MG TAB PO SCH (09:10)
[2019-03-22] MEDS: ISOSORBIDE MONONITRATE 30 MG TAB.SR PO SCH (09:11)
[2019-03-22] MEDS: amLODIPine BESYLATE 5 MG TAB PO SCH (09:11)
[2019-03-22] MEDS ORDERED: NS IV ONE (10:37)
[2019-03-22] MEDS ORDERED: METOLAZONE 5 MG TAB PO ONE (10:37)
[2019-03-22] MEDS ORDERED: FUROSEMIDE IV ONE (10:37)
--- NOTE | 2019-03-22 10:40 | SOAPPROG ---
SOAP Progress Note Assessment/Plan: Assessment/Plan: CHRIS on CKD 4: vamsi has had a Cr of around 2.0 since 2007 and in the past few years baseline Cr has been around 2.2-2.4, follows with Dr. Hyman. Her Cr is now quickly rising up to 5.0 today. She has had multiple renal insults this hospitalization, including contrast and fluctuations in BP. She is now volume overloaded and not responding well to diuretics. - Pt has had dialysis discussed with her multiple times by multiple providers, both during this hospitalization as well as in clinic. She has been clear that she would not want to undergo dialysis. She is likely needing dialysis now. I again discussed this with her today and she is still leaning against it, understanding the consequences of that decision, but will discuss with her children today. If she remains consistent against dialysis, which I think is appropriate, then would recommend palliative care consult. - Will attempt diuresis again this am as below. - Will continue to monitor. - Avoid hypotension and nephrotoxins. Hypervolemia: not having much response to diuretics in setting of CHRIS. - Will give another dose of IV Lasix this am, along with metolazone. - Continue 1L fluid restriction. HTN: BP ok on current meds. Hyperkalemia: will give Lasix and metolazone today. Subjective: No acute events overnight. Pt notes that her breathing continues to be on and off short. She feels very tired and generally unwell, starting to be a little confused today. Objective: Vital Signs Temp Pulse Resp BP Pulse Ox 37.2 C 89 27 H 139/44 H 90 L 03/22/19 07:51 03/22/19 09:09 03/22/19 07:51 03/22/19 07:51 03/22/19 07:51 Laboratory Results 03/21/19 04:55 03/22/19 05:19 03/21/19 03/22/19 03/23/19 05:59 05:59 05:59 Intake Total 865 1130 250 Output Total 750 200 Balance 115 930 250 General: alert and oriented, no acute distress Eyes: EOMI, PERRL OP: Clear CV: RRR Resp: mildly labored respirations on NC Abd: Soft, NT Ext: +2 edema BLE Neuro: CN II-XII Grossly intact Psych: cooperative, mildly confused ICD10 Worksheet Patient Problems: Problems Problem Status Onset Ataxia Acute Carotid stenosis, bilateral Acute Nausea & vomiting Acute Arthrodesis status Acute Cervical stenosis of spinal canal Acute
--- NOTE | 2019-03-22 11:24 | HOSPPROG ---
Hospitalist Progress Note Assessment/Plan: 88yo F with CAD, DM2 presented with dizziness found to have critical ICA stenoses s/p R CEA. Course complicated by decompensated dCHF with worsening renal function and respiratory failure. * CHRIS on CKD: worsening, unable to diurese, now uremic - multiple discussions by multiple providers with pt, she is steadfast in not wanting dialysis - pall care consult placed - probably home with hospice - renal following, adjusting diuretics * Acute respiratory failure due to pulmonary edema -minimally responsive to escalating doses of diuretics * Acute on chronic diastolic CHF and valvular heart disease (mod-severe MR and TR): cards consulted -continue lasix -afterload reduction with hydralazine and nitrates (unable to use DORIS/ARB) * Bilateral critical carotid stenosis s/p Right CEA -initial plan for staged procedure - follow-up with Dr. Moses to schedule left -ASA/Plavix * CAD, elevated troponin/demand ischemia -cath 2017 - patents stents, 100% RCA occlusion with good collaterals -cont ASA, plavix, BB, statin * Ecoli UTI -IV ceftriaxone through 03/23 * Anemia: h/h stable -no e/o bleeding, monitor for now * Bradycardia/pause due to beta-ion -metoprolol dose reduced * DM II -Lantus * Transient episodes of unresponsiveness: resolved, likely 2/2 hypoxia -repeat head CT ok Code: DNR/DNI Dispo: remain in SDU, pall care consulted, possibly home w/hospice in near future Subjective: Slightly confused today. Steadfast that she would not want dialysis. Son present at bedside and is leaning towards this too. Additional family coming in this PM. Objective: Vital Signs Temp Pulse Resp BP Pulse Ox 37.2 C 89 27 H 139/44 H 90 L 03/22/19 07:51 03/22/19 09:09 03/22/19 07:51 03/22/19 07:51 03/22/19 07:51 Laboratory Results 03/21/19 04:55 03/22/19 05:19 03/21/19 03/22/19 03/23/19 05:59 05:59 05:59 Intake Total 865 1130 250 Output Total 750 200 0 Balance 115 930 250 - Physical Exam Constitutional: no apparent distress Eyes: PERRL Ears, Nose, Mouth, Throat: moist mucous membranes Cardiovascular: regular rate and rhythym, no murmur, rub, or gallop Respiratory: no respiratory distress, reduced air movement (bases), inspiratory crackles Gastrointestinal: normoactive bowel sounds, soft, non-tender abdomen, no palpable masses Genitourinary: no bladder fullness, no bladder tenderness, no renal bruits Skin: no rashes or abrasions, no fluctuance, no induration Musculoskeletal: generalized weakness Neurologic: AAOx3, asterixes Psychiatric: interacting appropriately ICD10 Worksheet Patient Problems: Problems Problem Status Onset Ataxia Acute Carotid stenosis, bilateral Acute Nausea & vomiting Acute Arthrodesis status Acute Cervical stenosis of spinal canal Acute
--- NOTE | 2019-03-22 11:54 | SOAPPROG ---
SOAP Progress Note Assessment/Plan: Assessment: Patient more lethargic today, mental status affected by increasing renal failure , positive flap. BUN almost 100, and creatinine 5 today. Examination changed otherwise. Patient does not want to proceed with hemodialysis. Home hospice discussed. She has lived in her own home in [place] for 80 years. Family not in initially but subsequently came in and appears to be on board with this decision. Plan: Hospice consult this afternoon. Hopefully she will be able to return to her own home with hospice in the very near future. Will sign off at this point. Objective: Vital Signs Temp Pulse Resp BP Pulse Ox 36.8 C 70 18 118/45 L 94 03/22/19 11:43 03/22/19 11:43 03/22/19 11:43 03/22/19 11:43 03/22/19 11:43 Laboratory Results 03/21/19 04:55 03/22/19 05:19 03/21/19 03/22/19 03/23/19 05:59 05:59 05:59 Intake Total 865 1130 250 Output Total 750 200 0 Balance 115 930 250 ICD10 Worksheet Patient Problems: Problems Problem Status Onset Ataxia Acute Carotid stenosis, bilateral Acute Nausea & vomiting Acute Arthrodesis status Acute Cervical stenosis of spinal canal Acute
[2019-03-22] MEDS ORDERED: AMIODARONE HCL 100 ML IV ONE (17:36)
[2019-03-22] MEDS ORDERED: AMIODARONE HCL 200 ML IV ONE (17:36)
--- NOTE | 2019-03-22 17:46 | PDCARPN ---
Cardiology Progress Note Assessment/Plan: Assessment:1. Bigeminal PVCs with a very narrow coupling interval are non perfusing and have resulted in an effective pulse rate of approximately half of her heart rate. Coupled with valvular heart disease this results in severely decreased forward cardiac output, which is very likely negatively effecting her renal function and ability of diuretics to have any good chance of turning around her uremia. The patient. patient's daughter and Dr. head have agreed to let me try to suppress her ventricular ectopy with IV Amiodarone to see if we can improve her cardiac output and give her a chance to survive this insult to her kidneys without dialysis. I think she could very welll recover to a level that she could survive if we were able to dialyze her for a couple of sessions. She probably would not agree to that even for a few sessions. If we are unable to improve her cardioac output ans suppress the PVCs with Amiodarone she will likely not survive. Plan: As above. 03/22/19 17:40 Reviewed/Discussed With: family, multidisciplinary team Time Spent with Patient: greater than 25 minutes Time Spent with Patient: Greater than 25 minutes spent on this patients care, greater than 50% of time spent counseling, educating, and coordinating care regarding the above mentioned plan. Objective: Vital Signs (8 Hrs) Temp Pulse Resp BP Pulse Ox 03/22/19 15:53 36.4 C 70 20 131/60 H 95 03/22/19 11:43 36.8 C 70 18 118/45 L 94 Intake/Output (24 Hrs) 03/21/19 03/22/19 03/23/19 05:59 05:59 05:59 Intake Total 865 1130 600 Output Total 750 200 100 Balance 115 930 500 Intake: Oral (ml) 800 1000 450 IV Intake (ml) 15 30 100 IV Infused (ml) 50 100 50 cefTRIAXone 1 GM/DEXTROSE 50 100 50 50 ml @ 100 mls/hr IV DAILY [facility] Rx#:[id number] Output: Urine (ml) 750 200 100 Bedside Commode 200 Toilet 750 100 Other: Intake Quantity No Yes Yes Sufficient Number of Voids Bedside Commode 1 Toilet 1 Number of Stools Toilet 1 Bladder Scan Volume (ml) Bedpan 0 Result Diagrams: 03/21/19 04:55 03/22/19 05:19 Cardiac Labs: Cardiac Lab Results (72 Hrs) 03/21/19 03/20/19 04:55 03:50 Troponin I 0.123 H 0.194 H Telemetry: sinus rhythm with bigeminal PVC's - Physical Exam Constitutional: no apparent distress Eyes: anicteric sclera Ears, Nose, Mouth, Throat: moist mucous membranes Cardiovascular: systolic murmur, other (regularly irregular) Respiratory: reduced air movement, inspiratory crackles Gastrointestinal: normoactive bowel sounds, no tenderness Neurologic: AAOx3 Psychiatric: cooperative, interactive, following commands, not anxious ICD10 Worksheet Patient Problems: Problems Problem Status Onset Carotid stenosis, bilateral Acute Cervical stenosis of spinal canal Acute Arthrodesis status Acute Nausea & vomiting Acute Ataxia Acute
[2019-03-22] MEDS: ATORVASTATIN CALCIUM 40 MG TAB PO SCH (21:02)
[2019-03-22] MEDS: PATCH REMOVAL 1 EA PATCH TD SCH (21:03)
[2019-03-22] MEDS: INSULIN GLARGINE 100 UNITS/ML UNIT SC SCH (21:05)
[2019-03-23] MEDS ORDERED: AMIODARONE HCL 540 MG in D5W 300 ML IV ONE
[2019-03-23] MEDS: HEPARIN 5,000 UNIT/0.5 ML INJ SC SCH ×2 (05:41→13:21)
[2019-03-23] MEDS: INSULIN LISPRO 100 UNIT/ML SC SCH ×2 (07:13→12:50)
[2019-03-23] MEDS ORDERED: METOLAZONE 5 MG TAB PO ONE (08:30)
[2019-03-23] MEDS ORDERED: FUROSEMIDE 100 MG in D5W 50 ML IV ONE (09:00)
[2019-03-23] MEDS ORDERED: FUROSEMIDE 40 MG/4 ML VIAL IVP SCH (09:00)
--- NOTE | 2019-03-23 09:08 | SOAPPROG ---
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 Hyman. Her Cr is now quickly rising up to 5.6 today. She has had multiple renal insults this hospitalization, including contrast and fluctuations in BP. She is now volume overloaded and not responding well to diuretics. - Pt has had dialysis discussed with her multiple times by multiple providers, both during this hospitalization as well as in clinic. She has been clear that she would not want to undergo dialysis. She is likely needing dialysis now and remains against it, even temporarily. She is now planning to be discharged with hospice likely later today. - Agree with repeating diuretics this am. Hypervolemia: not having much response to diuretics in setting of CHRIS. - Getting another dose of IV Lasix this am, along with metolazone. - Continue 1L fluid restriction. HTN: BP ok on current meds. Hyperkalemia: K improved to 5.1 today. Thank you for the interesting consult. Nephrology will sign off at this time, please call if you have any questions or concerns or if there is a change in her disposition. Subjective: No acute events overnight. Pt had a few hundred ml UOP overnight, on 4L O2 this am and resting comfortably. She has decided to be discharged with hospice. Objective: Vital Signs Temp Pulse Resp BP Pulse Ox 36.5 C 78 17 129/57 H 93 03/23/19 04:00 03/23/19 08:00 03/23/19 08:00 03/23/19 08:00 03/23/19 08:00 Laboratory Results 03/21/19 04:55 03/23/19 05:42 03/22/19 03/23/19 03/24/19 05:59 05:59 05:59 Intake Total 1130 800 Output Total 200 400 Balance 930 400 General: no acute distress CV: RRR Resp: nonlabored respirations on NC Abd: Soft Ext: +2 edema BLE Neuro: CN II-XII Grossly intact ICD10 Worksheet Patient Problems: Problems Problem Status Onset Ataxia Acute Carotid stenosis, bilateral Acute Nausea & vomiting Acute Arthrodesis status Acute Cervical stenosis of spinal canal Acute
[2019-03-23] MEDS: METOPROLOL TARTRATE 50 MG TAB PO SCH (09:16)
[2019-03-23] MEDS: CLOPIDOGREL BISULFATE 75 MG TAB PO SCH (09:17)
[2019-03-23] MEDS: ISOSORBIDE MONONITRATE 30 MG TAB.SR PO SCH (09:17)
[2019-03-23] MEDS: ASPIRIN 81 MG CHEWABLE TAB PO SCH (09:19)
[2019-03-23] MEDS: CHOLECALCIFEROL VIT D3 2,000 UNITS TAB/CAP PO SCH (09:19)
[2019-03-23] MEDS: PRESERVISION AREDS2 FORMULA EYE VIT 1 EACH PO SCH (09:19)
[2019-03-23] MEDS: amLODIPine BESYLATE 5 MG TAB PO SCH ×2 (09:19→12:38)
[2019-03-23] MEDS: GABAPENTIN 100 MG CAP PO SCH (09:20)
[2019-03-23] MEDS: LIDOCAINE 4%/MENTHOL 1% PATCH TD SCH (09:20)
[2019-03-23 09:24] VITALS: BP 120/39
[2019-03-23] MEDS: SENNOSIDES/DOCUSATE SODIUM TAB PO SCH (09:31)
--- NOTE | 2019-03-23 12:59 | PDDCSUM ---
Discharge Summary Discharge Summary: Date of Admission: 03/08/2019 Date of Discharge: 03/23/2019 Disposition: SNF with hospice Discharge Diagnoses: 1. Acute on chronic renal failure 2. Acute hypoxemic respiratory failure 2/2 pulmonary edema 3. Acute on chronic diastolic CHF and valvular heart disease (severe MR and TR) 4. Bilateral critical carotid stenoses s/p R CEA 5. CAD s/p remote PCI 6. E coli UTI s/p 7 day course of ceftriaxone 7. Anemia 8. Type 2 diabetes 9. Remote lacunar infarction Brief Hospital Course: 88yo F with CAD s/p stents, remote lacunar infarct, chronic diastolic CHF, DM2 presented with dizziness found to have critical ICA stenoses. She underwent right carotid endarterectomy with Dr Vik Moses. Her post-operative course was complicated by worsening respiratory and renal failure in setting of acutely decompensated diastolic CHF and severe mitral regurgitation. Nephrology and cardiology were consulted. Attempts at aggressive diuresis were attempted but unsuccessful. Multiple discussion by multiple providers were had regarding dialysis; the patient was steadfast in her decision to not pursue dialysis, even for a short period of time. Palliative care was consulted. Patient has made decision to pursue hospice care and this was set up. I suspect she will pass away in the coming days due to complications of renal failure. Family has been very involved in this decision making. Medications: Please refer to EMR for complete list. Physical Exam: Alert, intermittently oriented, pleasant. Systolic murmur, frequent ectopy, inspiratory crackles with decreased BS at bases, bilateral leg edema, soft abdomen, well healing R CEA incision.
--- NOTE | 2019-03-23 12:59 | PDIAF ---
- Diagnosis Diagnosis: Acute on chronic renal failure. Now hospice/comfort care. Code Status: Do Not Resuscitate - Medication Management Discharge Medications: electronically signed and located in the Home Medication List. PICC Care - Routine: N/A - Orders Diet Texture: Regular Texture Diet, Thin Liquids, Meds Whole w/Liquids Vazquez: Not applicable Additional Instructions: Ok to discontinue all medications except those to help keep comfortable. - Follow Up Care Current Providers and Referrals: Jermaine Moses MD [Medical Doctor] - Natalio Espitia MD [Primary Care Provider] - As per Instructions
--- NOTE | 2019-03-23 15:07 | ASMTDCNOTE ---
Case Management Discharge Discharge Order Complete? Answers: Yes Patient to Obtain Answers: Other Notes: [facility] with hospice Medications Transportation Arranged Answers: Other Notes: [facility] Transport will Pick (Date 03/23/2019 12:00 AM & Time) Case Management Transport Answers: Yes Notes: [facility] for [facility] Form Complete Faxed Final Orders Answers: Yes Notes: [facility] Agency/Facility Transfer Answers: Yes Notes: [facility] Report Printed & Faxed to Receiving Agency Family Notified Answers: Yes Notes: daughterCarmel Discharge Comments Notes: Patient is discharging to [facility] private pay LTC longterm with [facility] support. The fees for [facility] were gone over with the family and they chose [facility] and agreed to the fees for private pay placement. Daughter Carmel and son Rikki were the decision makers. Transport was set up by Aniya with [facility] for today at 4:30. Patient will go stretcher with 4L O2. Aniya's number [phone]. Discharge summaries were Allscripted to [facility] and [facility]. Patient's children will meet her at [facility] today for the admissions process.PCS forms given to the school community relations coordinator. Pastora with [facility] was notified of the picker/puller time so she can coordinate her nurse. No further needs. Date Signed: 03/23/2019 03:06 PM Electronically Signed By:Earnestine Arce LCSW
--- NOTE | 2019-03-23 18:05 | CPIP ---
[f rep st] INVASIVE CARDIAC PROCEDURE DATE OF PROCEDURE: 03/22/2019 The patient is an 88-year-old lady who presented to the hospital with lightheadedness, dizziness and was ultimately found to have critical bilateral carotid disease. Her postoperative course was compli cated by acute on chronic renal failure, likely secondary to the contrast load performed for CTA of h er neck to evaluate her carotid circulation. Unfortunately, the patient has had a protracted hospita l course with bigeminal PVCs almost throughout the day and non-perfusing PVCs, which likely contribut ed to her worsening renal failure. At this point, the patient has refused dialysis, would not allow me to give her a loading gram of IV amiodarone to try to suppress the PVCs and improve her cardiac ou tput via that mechanism. I explained to the patient that if she is discharged with an effective puls e rate in the 30s with a creatinine of 5, that it is very likely that she would from progressi ve uremia. She understands that and wishes to no longer receive active medical care. She will be di scharged to a SNF with hospice in place to help try to preserve the dignity of her passing. She is a vivar that there are things that could be done to help improve her clinical situation. She seems to b e cogent and understands how this decision will impact her life including its duration, which will li trent be shortened by the fact that she is unwilling to participate even in temporary dialysis to try to get her kidney function back to where it was at the time of her admission to the hospital. We had approximately a 30-minute conversation about this issue and she has elected to avoid further treatme nt. Of course, I explained to her that I would like to respect her wishes as a patient and we obleonard hooksmigdalia will sign off her case at this time. /[id number]/MODL
--- NOTE | 2019-03-25 12:44 | PDPCPN ---
Palliative Care Progress Note Assessment/Plan: Assessment: [facility] [address] [place] [phone] (O) [phone](F) PALLIATIVE CARE NOTE NAME: Mariposa Jack : 34 VISIT TYPE: Initial LOCATION: [facility] DATE: 03/22/19 DIAGNOSES: 1. Diabetes 2. Congestive heart failure 3. Acute on Chronic kidney disease CC: Request from hospital for inpatient palliative visit HPI: His Guero is an 88-year-old female with a long-standing history of chronic kidney disease. She has been clear with her pattern checker from the beginning that she does not want dialysis. She has had an acute exacerbation of congestive heart failure with significant worsening of her renal function. She has declined rapidly in the last 2 weeks. Extensive discussion with the patient and her daughter and son regarding goals of treatment and goals of care. They are all in agreement to not pursue any further aggressive treatment and to admit to hospice for comfort measures only. PMH: As above ALLERGIES: No known drug allergies FAMILY HISTORY: Positive for hypertension and congestive heart failure SOCIAL HISTORY: Has been living independently PATIENT GOALS OF CARE: 1. Pursue no further treatment 2. Admit to assisted facility for hospice and comfort measures only ACTIVE SYMPTOMS/ASSESSMENTS/RECOMMENDATIONS: 1. Prognosis: Days to weeks 2. Hospice Eligibility: Yes 3. Chronic kidney failure N 17.9: Now acute on chronic kidney failure with creatinine in the fives. No desire for any further treatment or intervention. 4. Diastolic congestive heart failure I50.3: Acute exacerbation Recommended Hospice Admitting Diagnosis: Renal failure MODIFIED [place] SYMPTOM ASSESSMENT SCALE: 0-none; 1-3 mild; 4-6 moderate; 7-10 severe Unable to Respond: No [ ] Delirium: 0-none Depression: 0-none Anxiety: 0none Tiredness (fatigue): 5-Mod Drowsiness (sleepiness): 0-none Pain: 0-none Nausea: 0-none Anorexia: 0-none Shortness of Breath: 0-none Secretions: 0-none Constipation: 0-none Symptom and side effect management: acceptable to patient and family OBJECTIVE FINDINGS Palliative Performance Score: 40 FAST: NYHA: n/a Vital Signs: Wt: MAC: Neuro: A&O to person, place, time and event HEENT: Normocephalic; atraumatic RESP: Regular, deep, symmetrical. No cough or wheezing CV: +2-3 lower extremity edema GI: soft, round : no dysuria or hematuria MSK: Well nourished. Able to transfer with 2 max assist SKIN: intact LAB Data: N/A Disposition: Inpatient hospitalization with plan for discharge to assisted facility ADVANCE CARE PLANNING DISCUSSION DNR PLAN: Discharge to assisted facility under hospice care. Thank you for the opportunity to participate in the care of this patient. TIME SPENT: [id number] 70 min >50% of the time spent counseling, educating and coordinating the above topics. Manolo Robins [facility] Plan: 03/25/19 12:44 Objective: Vital Signs Temp Pulse Resp BP Pulse Ox 36.5 C 77 18 120/39 L 93 03/23/19 04:00 03/23/19 09:16 03/23/19 09:15 03/23/19 09:15 03/23/19 09:15 Laboratory Results 03/21/19 04:55 03/23/19 05:42 03/24/19 03/25/19 03/26/19 05:59 05:59 05:59 Intake Total 400 Output Total 25 Balance 375 ICD10 Worksheet Patient Problems: Problems Problem Status Onset Arthrodesis status Acute Ataxia Acute Carotid stenosis, bilateral Acute Cervical stenosis of spinal canal Acute Nausea & vomiting Acute
== END 2019-03-23 16:50 | DRG 37 ==
LOC: F2W 22:15 → F2N 03-14 10:25 → F3E 03-15 11:15 → F2W 03-19 12:04 → F2N 03-19 17:10
PROVIDERS: ADMIT Family Medicine; ATTEND Surgery
PROC: 03CK0Z6 (ICD-10-PCS; principal; 2019-03-14 11:30)
DX: I65.21 Occlusion and stenosis of right carotid artery (principal); I13.0 Hypertensive heart and chronic kidney disease with heart failure and stage 1 through stage 4 chronic kidney disease, or unspecified chronic kidney disease; I50.33 Acute on chronic diastolic (congestive) heart failure; J96.01 Acute respiratory failure with hypoxia; N17.9 Acute kidney failure, unspecified; N18.4 Chronic kidney disease, stage 4 (severe); E11.22 Type 2 diabetes mellitus with diabetic chronic kidney disease; N39.0 Urinary tract infection, site not specified; I49.3 Ventricular premature depolarization; E87.5 Hyperkalemia; D64.9 Anemia, unspecified; I16.0 Hypertensive urgency; I08.1 Rheumatic disorders of both mitral and tricuspid valves; E78.5 Hyperlipidemia, unspecified; I25.10 Atherosclerotic heart disease of native coronary artery without angina pectoris; Z98.1 Arthrodesis status; Z79.4 Long term (current) use of insulin; Z95.5 Presence of coronary angioplasty implant and graft; Z86.73 Personal history of transient ischemic attack (TIA), and cerebral infarction without residual deficits; Z66 Do not resuscitate; Z51.5 Encounter for palliative care
CPT/HCPCS: 70551-PN; 92610-GN; 96374; 97110-GP; 97116-GP; 97161-GP; 97165-GO; 97530-GO; 97530-GP; 97535-GO; C1768; J0282; J0360; J0690; J0696; J1100; J1644; J1815; J1940; J2001; J2370; J2405; J2704; J2720; J3010; Q9967